=== PATIENT | male | born 1935 | race Caucasian/White ===

== ENCOUNTER → 2016-12-31 | Outpatient (CLI) | payer MEDICARE ==
[~2016-12-31] MED LIST: ASPEC81 PO; B-COTAB18 PO; CHRO1TAB5 PO; FOLI400T18 PO; GADAVIST IV PRN; GLIM4TAB PO; MULBERRY LEAF PO; MULT-506 PO; MULTCAP36 PO; OFLO0.3S OPR; OMEG10007 PO; PRED1SUS3 OPR; SITA100T3 PO; VTMD1000 PO
--- NOTE | 2016-12-31 10:40 | DIAGNOSTIC IMAGING REPORT ---
MRI OF THE BRAIN WITHOUT AND WITH IV CONTRAST CLINICAL HISTORY: ATAXIA mental status change COMPARISON STUDY: 05/10/2009 TECHNIQUE: Utilizing a 1.5 Susan magnet and dedicated coil, multiplanar, multiecho imaging of the brain was performed pre and postcontrast administration. IV administration of 8 mL of Gadavist contrast was uneventful. FINDINGS: Findings of generalized cerebellar as well as cerebral atrophy. Moderate compensatory prominence of the ventricular system. All findings are prepped minimally progressive compared to the prior study. Findings of mild chronic small vessel change. No evidence for abnormal postcontrast enhancement. The structures the internal artery canals are unremarkable. Sella and sellar regions are unremarkable. IMPRESSION: 1. Findings of moderate generalized cerebral atrophy with mild compensatory prominence of the ventricular system. 2. All findings are stable to slightly progressive compared to the prior exam. 3. No acute process. No abnormal postcontrast enhancement. Electronically signed by: Florentino Pacheco M.D. 12/31/2016 10:39 AM Dictated Date/Time: 12/31/2016 10:30 AM
[2016-12-31 11:24] LABS: ISTAT CREATININE 0.9 mg/dl (0.6-1.3); ISTAT IONIZED CALCIUM 1.23 mmol/l (1.12-1.32)
== END | disposition home or self-care (01) ==
PROVIDERS: ATTEND Psychiatry & Neurology Neurology
DX: I67.82 Cerebral ischemia (principal); R27.0 Ataxia, unspecified; G31.9 Degenerative disease of nervous system, unspecified

== ENCOUNTER → 2017-01-12 | Outpatient (CLI) | payer MEDICARE ==
[~2017-01-12] MED LIST changes: -GADAVIST IV PRN
[2017-01-12 11:12] LABS: ALT/SGPT 21 U/L (12-78); AST/SGOT 12 U/L (15-37); BLOOD UREA NITROGEN 15 mg/dl (7-18); BUN/CREATININE RATIO 13.9 (10-20); CALCIUM 8.9 mg/dl (8.5-10.1); CARBON DIOXIDE 29 mmol/L (21-32); CHLORIDE 99 mmol/L (98-107); GLUCOSE 149 mg/dl (70-99); POTASSIUM 4.2 mmol/L (3.5-5.1); SODIUM 134 mmol/L (136-145)
[2017-01-12 11:18] LABS: ESTIMATED AVERAGE GLUCOSE 194 mg/dl; HA1C FLAG Normal (Normal)
[2017-01-12 11:23] LABS: ALB/GLOB RATIO 0.9 (0.9-2); ALKALINE PHOSPHATASE 72 U/L (45-117); CHOLESTEROL 158 mg/dl (0-200); CHOLESTEROL/HDL RATIO 2.6; HDL CHOLESTEROL 60 mg/dl; LDL CHOLESTEROL CALCULATED 83 mg/dl; TRIGLYCERIDES 74 mg/dl (0-150); VERY LOW DENSITY LIPOPROT CALC 15 mg/dl
== END | disposition home or self-care (01) ==
LOC: C.LABBC 07:41
PROVIDERS: ATTEND Family Medicine
DX: E11.8 Type 2 diabetes mellitus with unspecified complications (principal)

== ENCOUNTER → 2017-03-03 | Outpatient (CLI) | payer MEDICARE ==
[2017-03-03 13:19] LABS: BASO % 0.6 %; BASO ABS # 0.04 K/uL (0-0.2); COMPLETE YES; EOS % 1.4 %; HEMATOCRIT 39.7 % (42-52); IG% 0.1 %; LYMPH % 18.8 %; LYMPH ABS # 1.34 K/uL (1.2-3.4); MEAN CELL VOLUME 93.2 fL (80-100); MEAN CORPUSCULAR HEMOGLOBIN 32.6 pg (25-34); MEAN PLATELET VOLUME 10.1 fL (7.4-10.4); MONO % 8.7 %; NEUT % 70.4 %; PLATELET COUNT 233 K/uL (130-400); RED BLOOD COUNT 4.26 M/uL (4.7-6.1); WHITE BLOOD COUNT 7.13 K/uL (4.8-10.8)
[2017-03-03 17:21] LABS: ALB/GLOB RATIO 0.9 (0.9-2); AST/SGOT 14 U/L (15-37); BLOOD UREA NITROGEN 13 mg/dl (7-18); BUN/CREATININE RATIO 13.9 (10-20); CALCIUM 8.8 mg/dl (8.5-10.1); CARBON DIOXIDE 28 mmol/L (21-32); CHLORIDE 97 mmol/L (98-107); CREATININE 0.95 mg/dl (0.60-1.40); GLUCOSE 177 mg/dl (70-99); POTASSIUM 4.2 mmol/L (3.5-5.1); SODIUM 131 mmol/L (136-145)
[2017-03-03 17:37] LABS: ALKALINE PHOSPHATASE 80 U/L (45-117); ALT/SGPT 19 U/L (12-78); FERRITIN 39.8 ng/ml (8.0-388.0); MAGNESIUM 2.5 mg/dl (1.8-2.4)
--- NOTE | 2017-03-10 10:44 | CODING QUERY MEDICAL NECESSITY ---
CQSUPPORTING DIAGNOSIS NEEDED A supporting diagnosis is required for the test/procedure performed on this patient in order for us to be reimbursed by the patient's insurance. Please provide a supporting diagnosis for the following test/procedure listed below next to the test name along with your signature. *If there is no additional diagnosis for this patient that would support the following test/procedure please document that below next to the test/procedure. Test(s)/Procedure(s) that require a supporting diagnosis: DOS 03/03/17 VITAMIN B12 Provider Signature: Date: Thank you Annabella Dong Hello! [employer] Information Management Once completed, please kindly fax back to [phone] For questions please call [phone]
== END | disposition home or self-care (01) ==
LOC: C.LABBC 11:39
PROVIDERS: ATTEND Nurse Practitioner Family
DX: R53.83 Other fatigue (principal)

== ENCOUNTER → 2017-03-10 | Outpatient (CLI) | payer MEDICARE ==
[2017-03-10 17:29] LABS: BLOOD UREA NITROGEN 14 mg/dl (7-18); BUN/CREATININE RATIO 13.1 (10-20); CALCIUM 8.6 mg/dl (8.5-10.1); CARBON DIOXIDE 30 mmol/L (21-32); CHLORIDE 97 mmol/L (98-107); GLUCOSE 230 mg/dl (70-99); MAGNESIUM 2.3 mg/dl (1.8-2.4); SODIUM 133 mmol/L (136-145)
== END | disposition home or self-care (01) ==
LOC: C.LABBC 12:51
PROVIDERS: ATTEND Nurse Practitioner Family
DX: E83.41 Hypermagnesemia (principal); E87.1 Hypo-osmolality and hyponatremia

== ENCOUNTER 2017-11-07 14:41 | Inpatient (IN) | payer MEDICARE, OTHER ==
[~2017-11-07] VITALS: Ht 177.8 cm; Wt 73.2 kg
[2017-11-07] MEDS ORDERED: SODIUM CHLORIDE 0.9% 1000ML 1,000 ML IV STA (15:05)
[2017-11-07] MEDS ORDERED: IBUP-1050 PO (15:17)
[2017-11-07] MEDS ORDERED: MOML PO (15:17)
[2017-11-07] MEDS ORDERED: PSYL48.59 PO (15:17)
[2017-11-07] MEDS ORDERED: NVLGI/PEN (15:17)
[2017-11-07] MEDS ORDERED: ASPI1TAB83 PO (15:17)
[2017-11-07] MEDS ORDERED: CHOL1000 PO (15:17)
[2017-11-07] MEDS ORDERED: PRAV20TA PO (15:17)
[2017-11-07] MEDS ORDERED: CHRO500T5 PO (15:17)
[2017-11-07] MEDS ORDERED: CALC500C3 PO (15:17)
[2017-11-07] MEDS ORDERED: INSDGIPEN SC (15:17)
[2017-11-07 15:31] LABS: BASO % 0.5 %; BASO ABS # 0.03 K/uL (0-0.2); EOS % 2.1 %; EOS ABS # 0.13 K/uL (0-0.5); HEMATOCRIT 36.8 % (42-52); HEMOGLOBIN 13.1 g/dL (14.0-18.0); IG# 0.01 K/uL (0.00-0.02); LYMPH % 12.3 %; LYMPH ABS # 0.78 K/uL (1.2-3.4); MEAN CELL VOLUME 93.2 fL (80-100); MEAN CORPUSCULAR HEMOGLOBIN 33.2 pg (25-34); MEAN CORPUSCULAR HGB CONC 35.6 g/dl (32-36); MEAN PLATELET VOLUME 10.1 fL (7.4-10.4); MONO % 7.9 %; NEUT ABS # 4.88 K/uL (1.4-6.5); PLATELET COUNT 174 K/uL (130-400); RED CELL DISTRIBUTION WIDTH CV 13.9 % (11.5-14.5); WHITE BLOOD COUNT 6.33 K/uL (4.8-10.8)
[2017-11-07 15:40] LABS: PTT PATIENT 28.2 SECONDS (21.0-31.0)
[2017-11-07 15:48] LABS: ALBUMIN 3.4 gm/dl (3.4-5.0); BLOOD UREA NITROGEN 19 mg/dl (7-18); CALCIUM 9.2 mg/dl (8.5-10.1); CARBON DIOXIDE 27 mmol/L (21-32); GLUCOSE 196 mg/dl (70-99); POTASSIUM 4.4 mmol/L (3.5-5.1); SODIUM 132 mmol/L (136-145)
--- NOTE | 2017-11-07 15:59 | EMERGENCY ROOM VISIT NOTE ---
History Report prepared by Imelda: Girish Caballero Under the Supervision of: Dr. Raghu Walsh M.D. First contact with patient: 14:46 Stated Complaint: FALL History of Present Illness The patient is a 82 year old male who presents to the Emergency Room with complaints of worsening generalized weakness that began several days ago. He has a past medical history of Parkinson's disease, diverticulosis, chronic constipation, and diabetes. This HPI is provided by the patient and his family. Four days ago, the patient experienced a fall with his walker. He landed on his back and has been experiencing lower back pain secondary to this. Since then, he has been able to walk but his notes that he has been getting progressively weaker. She also believes that his Parkinson's is worsening. Pt denies LOC, headache, visual changes, neck pain, chest pain, breathing difficulties, nausea, vomiting, abdominal pain, extremity pain, numbness, weakness, open wounds, active bleeding, or other complaints. The patient's family notes that last night, his had to lower him to ground because he was too weak to stand. Source of History: patient, family Onset: several days ago Position: other (Global) Symptom Intensity: moderate Quality: other (Generalized weakness) Timing: worsening Associated Symptoms: + back pain Review of Systems See HPI for pertinent positives and negatives. A total of ten systems were reviewed and were otherwise negative. Past Medical & Surgical Medical Problems: (1) Chronic constipation (2) Diabetes (3) Diverticulosis (4) Parkinson disease Family History Omitted secondary to the patient's age. Social History Smoking Status: Never Smoker Smokeless Tobacco Use: No Drug Use: none Occupation Status: retired Current/Historical Medications Scheduled Aspirin (Aspirin), 1 TAB PO DAILY Cholecalciferol (Vitamin D3), 1 TAB PO DAILY Chromium Picolinate (Chromium Picolinate), 500 MG PO DAILY Insulin Aspart (Novolog Flexpen), AC Insulin Glargine (Lantus Solostar), 20 UNITS SC QAM Magnesium Hydroxide (Milk Of Magnesia), 30 ML PO DAILY Pravastatin (Pravachol ), 20 MG PO DAILY Scheduled PRN Calcium Carbonate (Tums), 500 MG PO UD PRN for Indigestion Ibuprofen (Advil), 600 MG PO UD PRN for Pain Psyllium (Metamucil), 1 TBS PO DAILY PRN for Constipation Allergies Coded Allergies: No Known Allergies (Verified , NONE, 05/09/15) Physical Exam Vital Signs Date Time Temp Pulse Resp B/P (MAP) Pulse Ox O2 Delivery O2 Flow Rate FiO2 11/07/17 16:54 70 18 165/94 95 Room Air 11/07/17 15:24 69 11/07/17 14:45 96 Room Air 11/07/17 14:45 36.5 67 20 183/105 96 Room Air Physical Exam GENERAL: Awake, alert, well-appearing, in no distress HENT: Normocephalic, atraumatic. Oropharynx unremarkable. EYES: Normal conjunctiva. Sclera non-icteric. NECK: Supple. No nuchal rigidity. FROM. No JVD. RESPIRATORY: Clear to auscultation. CARDIAC: Regular rate, normal rhythm. Extremities warm and well perfused. Pulses equal. ABDOMEN: Soft, non-distended. No tenderness to palpation. No rebound or guarding. No masses. RECTAL: Deferred. MUSCULOSKELETAL: Chest examination reveals no tenderness. The back is symmetrical on inspection without obvious abnormality. There is no CVA tenderness to palpation. No joint edema. LOWER EXTREMITIES: Calves are equal size bilaterally and non-tender. No edema. No discoloration. NEURO: Normal sensorium. No sensory or motor deficits noted. SKIN: No rash or jaundice noted. Medical Decision & Procedures ER Provider Diagnostic Interpretation: Radiology results as stated below per my review and radiologist interpretation: LUMBAR SPINE CT CT DOSE: 622.43 mGy.cm HISTORY: fall, high lumbar pain, please include t-11 and t-12 TECHNIQUE: Multiaxial CT images of the lumbar spine were performed and reformatted in the sagittal and coronal plane without the use of contrast. A dose lowering technique was utilized adhering to the principles of ALARA. COMPARISON: Lumbar spine 02/02/2014. FINDINGS: Mild levoscoliosis, unchanged. There is an acute superior endplate compression fracture at T12. This demonstrates less than 10% loss of height centrally. No associated retropulsion. No additional fractures identified within the lumbar spine. There is 4 mm of anterolisthesis of L3 on L4. Moderate facet degenerative changes within the mid to lower lumbar spine. Mild disc space narrowing at L2-L3, L3-L4 and L4-5, and L5-S1. Moderate to space narrowing at L1-L2. Old, healed right posterior 12th rib fracture. Moderate to severe central canal narrowing at L3-L4 due to the disc bulge and ligamentum and facet hypertrophy. There is a punctate stone within the right kidney. An ectatic abdominal aorta measuring up to 2.8 cm in diameter. Mild paraspinal edema at the T12 level due to the fracture. IMPRESSION: 1. An acute mild superior endplate compression fracture at T12. No associated retropulsion. 2. Otherwise, no acute fractures identified within the lumbar spine. 3. Levoscoliosis. 4. Degenerative changes as described above most pronounced at the L3-L4 level. Electronically signed by: Bob Barber M.D. 11/07/2017 4:19 PM Dictated Date/Time: 11/07/2017 4:13 PM RIGHT HIP 2 VIEWS HISTORY: fall, right hip pain(h/o hip pain) COMPARISON: None. FINDINGS: There is no fracture or dislocation. Soft tissues are unremarkable. No radiopaque foreign bodies. Mild osteoarthritis within the right hip. The visualized pelvic bones are intact. IMPRESSION: No fracture or dislocation within the right hip. Electronically signed by: Bob Barber M.D. 11/07/2017 4:27 PM Dictated Date/Time: 11/07/2017 4:26 PM CHEST ONE VIEW PORTABLE HISTORY: fall, back pain COMPARISON: Chest 11/07/2017. FINDINGS: Old, healed right lower rib fractures. No focal lung consolidations to suggest pneumonia. The heart is normal in size. No pleural effusions. No pneumothorax. Retrocardiac density consistent with a moderate hiatus hernia. A few small linear densities the left lung base likely represent subsegmental atelectasis. IMPRESSION: 1. No acute process within the chest. 2. Moderate hiatus hernia. Electronically signed by: Bob Barber M.D. 11/07/2017 4:29 PM Dictated Date/Time: 11/07/2017 4:28 PM Laboratory Results 11/07/17 15:20 Red Blood Count 3.95, Mean Corpuscular Volume 93.2, Mean Corpuscular Hemoglobin 33.2, Mean Corpuscular Hemoglobin Concent 35.6, Mean Platelet Volume 10.1, Neutrophils (%) (Auto) 77.0, Lymphocytes (%) (Auto) 12.3, Monocytes (%) (Auto) 7.9, Eosinophils (%) (Auto) 2.1, Basophils (%) (Auto) 0.5, Neutrophils # (Auto) 4.88, Lymphocytes # (Auto) 0.78, Monocytes # (Auto) 0.50, Eosinophils # (Auto) 0.13, Basophils # (Auto) 0.03 11/07/17 15:20 Test 11/07/17 15:20 11/07/17 17:13 White Blood Count 6.33 K/uL (4.8-10.8) Red Blood Count 3.95 M/uL (4.7-6.1) Hemoglobin 13.1 g/dL (14.0-18.0) Hematocrit 36.8 % (42-52) Mean Corpuscular Volume 93.2 fL (80-100) Mean Corpuscular Hemoglobin 33.2 pg (25-34) Mean Corpuscular Hemoglobin Concent 35.6 g/dl (32-36) Platelet Count 174 K/uL (130-400) Mean Platelet Volume 10.1 fL (7.4-10.4) Neutrophils (%) (Auto) 77.0 % Lymphocytes (%) (Auto) 12.3 % Monocytes (%) (Auto) 7.9 % Eosinophils (%) (Auto) 2.1 % Basophils (%) (Auto) 0.5 % Neutrophils # (Auto) 4.88 K/uL (1.4-6.5) Lymphocytes # (Auto) 0.78 K/uL (1.2-3.4) Monocytes # (Auto) 0.50 K/uL (0.11-0.59) Eosinophils # (Auto) 0.13 K/uL (0-0.5) Basophils # (Auto) 0.03 K/uL (0-0.2) RDW Standard Deviation 48.0 fL (36.4-46.3) RDW Coefficient of Variation 13.9 % (11.5-14.5) Immature Granulocyte % (Auto) 0.2 % Immature Granulocyte # (Auto) 0.01 K/uL (0.00-0.02) Prothrombin Time 11.0 SECONDS (9.0-12.0) Prothromb Time International Ratio 1.0 (0.9-1.1) Activated Partial Thromboplast Time 28.2 SECONDS (21.0-31.0) Partial Thromboplastin Ratio 1.1 Anion Gap 6.0 mmol/L (3-11) Est Creatinine Clear Calc Drug Dose 65.9 ml/min Estimated GFR () 91.3 Estimated GFR (Non- 78.8 BUN/Creatinine Ratio 20.7 (10-20) Calcium Level 9.2 mg/dl (8.5-10.1) Magnesium Level 2.2 mg/dl (1.8-2.4) Total Bilirubin 0.6 mg/dl (0.2-1) Direct Bilirubin 0.1 mg/dl (0-0.2) Aspartate Amino Transf (AST/SGOT) 16 U/L (15-37) Alanine Aminotransferase (ALT/SGPT) 15 U/L (12-78) Alkaline Phosphatase 78 U/L (45-117) Troponin I < 0.015 ng/ml (0-0.045) Total Protein 7.9 gm/dl (6.4-8.2) Albumin 3.4 gm/dl (3.4-5.0) Lipase 59 U/L (73-393) Thyroid Stimulating Hormone (TSH) 1.870 uIu/ml (0.300-4.500) Urine Color YELLOW Urine Appearance CLEAR (CLEAR) Urine pH 6.5 (4.5-7.5) Urine Specific [place] 1.020 (1.000-1.030) Urine Protein NEG (NEG) Urine Glucose (UA) 1+ (NEG) Urine Ketones 1+ (NEG) Urine Occult Blood TRACE (NEG) Urine Nitrite NEG (NEG) Urine Bilirubin NEG (NEG) Urine Urobilinogen NEG (NEG) Urine Leukocyte Esterase NEG (NEG) Urine WBC (Auto) 1-5 /hpf (0-5) Urine RBC (Auto) 5-10 /hpf (0-4) Urine Hyaline Casts (Auto) 1-5 /lpf (0-5) Urine Epithelial Cells (Auto) 5-10 /lpf (0-5) Urine Bacteria (Auto) NEG (NEG) Laboratory results reviewed by me Medications Administered Medications (Trade) Dose Ordered Sig/Dannielle Route Start Time Stop Time Status Last Admin Dose Admin Sodium Chloride 1,000 ml @ 125 mls/hr Q8H STAT IV 11/07/17 15:05 11/07/17 23:04 11/07/17 15:05 125 MLS/HR Tramadol HCl (Ultram Tab) 50 mg NOW STAT PO 11/07/17 16:44 11/07/17 16:45 DC 11/07/17 17:37 50 MG ECG Indication: weakness Rate (beats per minute): 69 Rhythm: normal sinus Findings: no acute ischemic change, left axis deviation Change: ECG interpreted by me ED Course 1446: The patient was evaluated in room A10. A complete history and physical exam was performed. 1505: Ordered Sodium Chloride 1000 ml @ 125 mls/hr IV 1644: Ordered Ultram Tab 50 mg PO 1645: Upon reexamination, the patient was resting. I discussed the test results and treatment plan with him and his family. I discussed the patient's case with Dr. Gurrola of [facility]. The patient will be evaluated for further management. Medical Decision Prior records/ancillary studies reviewed and summarized above. Nursing notes reviewed and agree them. Additional history obtained from family The patient's history was concerning for weakness. Differential diagnosis: Etiologies such as metabolic, infection, hypo/hyperglycemia, electrolyte abnormalities, cardiac sources, intracerebral event, toxicologic, neurologic, as well as others were entertained. Physical examination: As above. ER treatment provided: IV Lock IV hydration with normal saline On reassessment the patient felt better. Tramadol Diagnostics interpretation by me: ECG: Normal as above. The labs revealed an unremarkable CBC and chemistry panel. Urinalysis unremarkable. Imaging studies: X-rays and CAT scan as above. Consultation: A consultation was placed with the hospitalist. The case was discussed and diagnostics were reviewed. The patient was evaluated in the ER for further treatment. Medication Reconcilliation Current Medication List: was personally reviewed by me Blood Pressure Screening Patient's blood pressure: Elevated blood pressure Referred to the hospitalist Consults Time Called: 1640 Consulting Physician: Dr. Gurrola - [facility] Returned Call: 1645 Discussed the patient's case. The patient will be evaluated for further treatment and disposition. Impression Primary Impression: Generalized weakness Additional Impressions: T12 compression fracture Fall Scribe Attestation The scribe's documentation has been prepared under my direction and personally reviewed by me in its entirety. I confirm that the note above accurately reflects all work, treatment, procedures, and medical decision making performed by me. Departure Information Dispostion Being Evaluated By Hospitalist Referrals Cortney Denise DO (PCP) Problem Qualifiers
--- NOTE | 2017-11-07 16:20 | DIAGNOSTIC IMAGING REPORT ---
LUMBAR SPINE CT CT DOSE: 622.43 mGy.cm HISTORY: fall, high lumbar pain, please include t-11 and t-12 TECHNIQUE: Multiaxial CT images of the lumbar spine were performed and reformatted in the sagittal and coronal plane without the use of contrast. A dose lowering technique was utilized adhering to the principles of ALARA. COMPARISON: Lumbar spine 02/02/2014. FINDINGS: Mild levoscoliosis, unchanged. There is an acute superior endplate compression fracture at T12. This demonstrates less than 10% loss of height centrally. No associated retropulsion. No additional fractures identified within the lumbar spine. There is 4 mm of anterolisthesis of L3 on L4. Moderate facet degenerative changes within the mid to lower lumbar spine. Mild disc space narrowing at L2-L3, L3-L4 and L4-5, and L5-S1. Moderate to space narrowing at L1-L2. Old, healed right posterior 12th rib fracture. Moderate to severe central canal narrowing at L3-L4 due to the disc bulge and ligamentum and facet hypertrophy. There is a punctate stone within the right kidney. An ectatic abdominal aorta measuring up to 2.8 cm in diameter. Mild paraspinal edema at the T12 level due to the fracture. IMPRESSION: 1. An acute mild superior endplate compression fracture at T12. No associated retropulsion. 2. Otherwise, no acute fractures identified within the lumbar spine. 3. Levoscoliosis. 4. Degenerative changes as described above most pronounced at the L3-L4 level. Electronically signed by: Bob Barber M.D. 11/07/2017 4:19 PM Dictated Date/Time: 11/07/2017 4:13 PM
--- NOTE | 2017-11-07 16:29 | DIAGNOSTIC IMAGING REPORT ---
RIGHT HIP 2 VIEWS HISTORY: fall, right hip pain(h/o hip pain) COMPARISON: None. FINDINGS: There is no fracture or dislocation. Soft tissues are unremarkable. No radiopaque foreign bodies. Mild osteoarthritis within the right hip. The visualized pelvic bones are intact. IMPRESSION: No fracture or dislocation within the right hip. Electronically signed by: Bob Barber M.D. 11/07/2017 4:27 PM Dictated Date/Time: 11/07/2017 4:26 PM
--- NOTE | 2017-11-07 16:30 | DIAGNOSTIC IMAGING REPORT ---
CHEST ONE VIEW PORTABLE HISTORY: fall, back pain COMPARISON: Chest 11/07/2017. FINDINGS: Old, healed right lower rib fractures. No focal lung consolidations to suggest pneumonia. The heart is normal in size. No pleural effusions. No pneumothorax. Retrocardiac density consistent with a moderate hiatus hernia. A few small linear densities the left lung base likely represent subsegmental atelectasis. IMPRESSION: 1. No acute process within the chest. 2. Moderate hiatus hernia. Electronically signed by: Bob Barber M.D. 11/07/2017 4:29 PM Dictated Date/Time: 11/07/2017 4:28 PM
[2017-11-07] MEDS ORDERED: TRAMADOL HCL 50 MG TAB PO STA (16:44)
[2017-11-07 16:54] VITALS: O2SAT 95
[2017-11-07] MEDS ORDERED: GLUCAGON FOR INJ 1 MG VIAL SQ PRN (17:15)
[2017-11-07] MEDS ORDERED: ONDANSETRON INJ 2 MG/ML 2 ML VIAL IV PRN (17:15)
[2017-11-07] MEDS ORDERED: ACETAMINOPHEN 325 MG TAB PO PRN (17:15)
[2017-11-07] MEDS ORDERED: GLUCOSE 10 TABS/TUBE PO PRN (17:15)
[2017-11-07] MEDS ORDERED: CALCIUM CARBONATE 500 MG CHEWABLE PO PRN (17:15)
[2017-11-07] MEDS ORDERED: GLUCOSE 40% GEL 15 GM TUBE PO PRN (17:15)
[2017-11-07] MEDS ORDERED: MAGNESIUM HYDROXIDE SUSP 30 ML UDC PO PRN (17:15)
[2017-11-07] MEDS ORDERED: DEXTROSE 50% 50 ML SYR IV PRN (17:15)
[2017-11-07] MEDS ORDERED: KETOROLAC TROMETHAMINE 15 MG/ML VIAL IV. PRN (17:15)
[2017-11-07] MEDS ORDERED: PSYLLIUM 58.6% PWD PACK S\\F PO PRN (17:15)
[2017-11-07] MEDS ORDERED: IBUPROFEN 600 MG TAB PO PRN (17:15)
[2017-11-07 17:18] LABS: ALT/SGPT 15 U/L (12-78); AST/SGOT 16 U/L (15-37); CREATININE 0.91 mg/dl (0.60-1.40); LIPASE 59 U/L (73-393)
--- NOTE | 2017-11-07 17:25 | History and Physical ---
History & Physical Date & Time of Service: Nov 07, 2017 at 17:14 Chief Complaint: FALL Primary Care Physician: Dre Ramirez III, CRNP History of Present Illness Source: patient, family 82 y/o M who was brought to the ED for back pain s/p fall. Pt fell on Thursday and has had back pain since that time that is not improving. He states he is fine at rest, but that it increases with any movement. He is supposed to use a walker, but was not at the time of the fall. He is not certain if he tripped but does not believe that he passed out. He is legally blind with low vision so it is difficult for him to determine. He has fallen 2 other times this month for the same reason. He notes that he is always dizzy--room spinning form and has been for about 13 years. This has been looked at many times with no etiology found. Pt has Parkinson's and has been having worsening weakness and ability to ambulate. Family is interested in rehab placement as is struggling to take care of him at this current level of functioning. Pt has chronic constipation. He takes milk of Mg daily to have a bowel movement and has for some time now. Pt denies fever, SOB, chest pain, abd pain, n/v, LE pain or swelling. Past Medical/Surgical History Medical Problems: (1) Chronic constipation Status: Chronic (2) Diabetes Status: Chronic (3) Diverticulosis Status: Chronic (4) Parkinson disease Status: Chronic Hyperlipidemia Old strokes noted on prior imaging Social History Smoking Status: Never Smoker Smokeless Tobacco Use: No Alcohol Use: none Drug Use: none Housing status: lives with family Occupational Status: retired Immunizations History of Influenza Vaccine: No History of Tetanus Vaccine?: No History of Pneumococcal: No History of Hepatitis B Vaccine: No Multi-Drug Resistant Organisms History of MDRO: No Allergies Coded Allergies: No Known Allergies (Verified , NONE, 05/09/15) Home Medications Scheduled Aspirin (Aspirin), 1 TAB PO DAILY Cholecalciferol (Vitamin D3), 1 TAB PO DAILY Chromium Picolinate (Chromium Picolinate), 500 MG PO DAILY Insulin Aspart (Novolog Flexpen), AC Insulin Glargine (Lantus Solostar), 20 UNITS SC QAM Magnesium Hydroxide (Milk Of Magnesia), 30 ML PO DAILY Pravastatin (Pravachol ), 20 MG PO DAILY Scheduled PRN Calcium Carbonate (Tums), 500 MG PO UD PRN for Indigestion Ibuprofen (Advil), 600 MG PO UD PRN for Pain Psyllium (Metamucil), 1 TBS PO DAILY PRN for Constipation Review of Systems Pertinent positives and negatives reviewed in HPI--all others negative Physical Exam Vital Signs Date Time Temp Pulse Resp B/P (MAP) Pulse Ox O2 Delivery O2 Flow Rate FiO2 11/07/17 16:54 70 18 165/94 95 Room Air 11/07/17 15:24 69 11/07/17 14:45 96 Room Air 11/07/17 14:45 36.5 67 20 183/105 96 Room Air General Appearance: WD/WN, no apparent distress Head: normocephalic, atraumatic Eyes: normal inspection, sclerae normal Respiratory/Chest: normal breath sounds, no respiratory distress Cardiovascular: regular rate, rhythm, no edema Abdomen/GI: non tender, soft Extremities/Musculoskelatal: no calf tenderness, no pedal edema Neurologic/Psych: alert, normal mood/affect, oriented x 3 Skin: normal color, warm/dry Diagnostics Laboratory Results Results Past 24 Hours Test 11/07/17 15:20 Range/Units White Blood Count 6.33 4.8-10.8 K/uL Red Blood Count 3.95 4.7-6.1 M/uL Hemoglobin 13.1 14.0-18.0 g/dL Hematocrit 36.8 42-52 % Mean Corpuscular Volume 93.2 80-100 fL Mean Corpuscular Hemoglobin 33.2 25-34 pg Mean Corpuscular Hemoglobin Concent 35.6 32-36 g/dl Platelet Count 174 130-400 K/uL Mean Platelet Volume 10.1 7.4-10.4 fL Neutrophils (%) (Auto) 77.0 % Lymphocytes (%) (Auto) 12.3 % Monocytes (%) (Auto) 7.9 % Eosinophils (%) (Auto) 2.1 % Basophils (%) (Auto) 0.5 % Neutrophils # (Auto) 4.88 1.4-6.5 K/uL Lymphocytes # (Auto) 0.78 1.2-3.4 K/uL Monocytes # (Auto) 0.50 0.11-0.59 K/uL Eosinophils # (Auto) 0.13 0-0.5 K/uL Basophils # (Auto) 0.03 0-0.2 K/uL RDW Standard Deviation 48.0 36.4-46.3 fL RDW Coefficient of Variation 13.9 11.5-14.5 % Immature Granulocyte % (Auto) 0.2 % Immature Granulocyte # (Auto) 0.01 0.00-0.02 K/uL Prothrombin Time 11.0 9.0-12.0 SECONDS Prothromb Time International Ratio 1.0 0.9-1.1 Activated Partial Thromboplast Time 28.2 21.0-31.0 SECONDS Partial Thromboplastin Ratio 1.1 Sodium Level 132 136-145 mmol/L Potassium Level 4.4 3.5-5.1 mmol/L Chloride Level 98 98-107 mmol/L Carbon Dioxide Level 27 21-32 mmol/L Anion Gap 6.0 3-11 mmol/L Blood Urea Nitrogen 19 7-18 mg/dl Random Glucose 196 70-99 mg/dl Calcium Level 9.2 8.5-10.1 mg/dl Magnesium Level 2.2 1.8-2.4 mg/dl Albumin 3.4 3.4-5.0 gm/dl Diagnostic Radiology CXR with moderate hiatal hernia Hip XR neg for acute Lumbar CT: T12 compression fx and scoliosis Impression Assessment and Plan 82 y/o M who was admitted on 11/07 for recent falls and worsening weakness Back pain s/p fall: likely related to T12 compression fx as noted by CT L-spine Start calcitonin spray Pt requesting no narcotics, will use toradol instead Orthotics c/s for bracing Worsening weakness: likely related to Parkinson's PT/OT pending Family is requesting rehab placement Chronic constipation: advised multi-strain probiotic such as J[place] EPS This may be a barakat factor in his dizziness, which will help with overall quality of life and fall reduction MOM as needed, however hopefully the probiotic will be able to eventually replace MOM DM: Lantus + SSI PRN A1c pending CAD prevention: continue aspirin 81mg Hyperlipidemia: continue home meds Other: Full code Heparin for DVT proph DM diet Level of Care Med/Surg Resuscitation Status FULL RESUSCITATION VTE Prophylaxis VTE Risk Assessment Done? Y/N: Yes Risk Level: Low Additional Copies To Dre Ramirez III, CRNP
[2017-11-07 17:29] LABS: ALKALINE PHOSPHATASE 78 U/L (45-117); TOTAL PROTEIN 7.9 gm/dl (6.4-8.2)
[2017-11-07 18:00] VITALS: BP 178/123; PULSE 66; TEMP 36.8; Ht 177.8 cm; Wt 73.2 kg
[2017-11-07 18:13] VITALS: BP 178/123; PULSE 66; TEMP 36.8; O2SAT 99
[2017-11-07 19:34] VITALS: BP 163/90
[2017-11-07] MEDS ORDERED: PNEUMOCOCCAL POLYSACCHARIDES 25 MCG/0.5 ML VIAL/SYR IM. ONE (20:45)
[2017-11-07] MEDS ORDERED: PNEUMOCOCCAL ADMINISTRATION CHARGE ONE (20:45)
[2017-11-07] MEDS: INSULIN ASPART 100 UNITS/ML 3 ML PEN SC SCH (21:34)
[2017-11-07] MEDS: HEPARIN SOD 5000 UNIT/0.5 ML CARP SQ SCH (21:35)
[2017-11-07 23:40] VITALS: BP 150/84; PULSE 75; TEMP 36.7; O2SAT 95
[2017-11-08] MEDS: HEPARIN SOD 5000 UNIT/0.5 ML CARP SQ SCH ×3 (05:27→21:03)
[2017-11-08 06:59] VITALS: BP 169/85; TEMP 36.7; O2SAT 99
[2017-11-08] MEDS: MAGNESIUM HYDROXIDE SUSP 30 ML UDC PO SCH (08:33)
[2017-11-08] MEDS: PRAVASTATIN SOD 20 MG TAB PO SCH (08:33)
[2017-11-08] MEDS: CALCITONIN SALMON NA 200 IU/AC 3.7 ML BTL SCH (08:34)
[2017-11-08] MEDS: ASPIRIN 81 MG ECTAB PO SCH (08:34)
[2017-11-08] MEDS: CHOLECALCIFEROL 1000 INTER.UNIT TAB PO SCH (08:34)
[2017-11-08] MEDS: INSULIN ASPART 100 UNITS/ML 3 ML PEN SC SCH ×4 (08:35→21:00)
[2017-11-08] MEDS: INSULIN GLARGINE SOLOSTAR 100 UNITS/ML 3 ML PEN SC SCH (08:36)
[2017-11-08] MEDS ORDERED: CHROMIUM PICOLINATE PO SCH (09:00)
[2017-11-08] MEDS ORDERED: HydrALAZINE HCL 20 MG/ML VIAL IV. PRN (12:00)
[2017-11-08 13:41] VITALS: BP 162/95; PULSE 78; O2SAT 99
[2017-11-08 15:17] VITALS: BP 145/78; PULSE 78; TEMP 36.6; O2SAT 98
--- NOTE | 2017-11-08 21:58 | Hospitalist Progress Note ---
Hospitalist Progress Note Date of Service Nov 08, 2017. Subjective Pt evaluation today including: conversation w/ patient, conversation w/ family ( and daughter on phone) Pt reports pain in lower back, but "not terrible." No CP or SOB. Would like me to speak to his about possible placement. All Other Systems: Reviewed and Negative Objective Vital Signs Date Time Temp Pulse Resp B/P (MAP) Pulse Ox O2 Delivery O2 Flow Rate FiO2 11/08/17 15:17 36.6 78 16 145/78 (100) 98 Room Air 11/08/17 15:10 Room Air 11/08/17 13:41 78 18 162/95 (117) 99 11/08/17 07:49 Room Air 11/08/17 06:59 36.7 16 169/85 (113) 99 Room Air 11/07/17 23:40 36.7 75 18 150/84 (106) 95 Room Air 11/07/17 23:00 Room Air Physical Exam General Appearance: WD/WN, no apparent distress Eyes: normal inspection, sclerae normal ENT: + pertinent finding ([place]) Neck: trachea midline Respiratory/Chest: lungs clear, normal breath sounds, no respiratory distress, no accessory muscle use Cardiovascular: regular rate, rhythm, no edema, no gallop, no murmur Abdomen: normal bowel sounds, non tender, soft, no pulsatile mass Extremities: non-tender (and no tenderness over spinous processes), no pedal edema, no calf tenderness Neurologic/Psychiatric: no motor/sensory deficits, alert, normal mood/affect Skin: normal color, warm/dry, no rash Laboratory Results Last 24 Hours Test 11/08/17 05:20 11/08/17 08:10 11/08/17 12:15 11/08/17 17:05 Bedside Glucose 132 mg/dl 162 mg/dl 91 mg/dl Test 11/08/17 20:33 Bedside Glucose 110 mg/dl Assessment and Plan Pt is an 82 y/o male with a h/o HTN, HL, DMII, constipation, macular degeneration with legal blindness, hearing loss, and polyneuropathy who was admitted for recent falls and worsening weakness, found to have acute T12 compression fracture and intractable pain. Back pain s/p fall: likely related to T12 compression fx as noted by CT L- spine. Pain is fairly well controlled. Evaluated by PT and recommending rehab placement -continue calcitonin spray Pt requesting no narcotics, will use toradol/NSAIDs Orthotics c/s for bracing-awaiting consult likely Thursday Worsening weakness:has chronic dizziness, neuropathy, legal blindness all likely contributing to falls. Has seen Neurology and ENT multiple times as outpatient-advised to have PT PT/OT pending Family is requesting rehab placement Chronic constipation: probiotic recommended This may be a barakat factor in his dizziness, which will help with overall quality of life and fall reduction MOM as needed, however hopefully the probiotic will be able to eventually replace MOM -start fiber daily, Miralax daily DM: Lantus + SSI PRN A1c pending CAD prevention: continue aspirin 81mg Hyperlipidemia: continue statin Full code Heparin for DVT proph Dispo- to SNF when bed available and insurance auth approved
[2017-11-08 23:21] VITALS: BP 163/85; PULSE 75; TEMP 36.8; O2SAT 94
[2017-11-09] MEDS: HEPARIN SOD 5000 UNIT/0.5 ML CARP SQ SCH ×2 (05:33→13:11)
[2017-11-09 07:15] VITALS: BP 160/77; PULSE 71; TEMP 36.5; O2SAT 97
[2017-11-09 07:39] LABS: HEMOGLOBIN A1C 7.6 % (4.5-5.6)
[2017-11-09] MEDS: CALCITONIN SALMON NA 200 IU/AC 3.7 ML BTL SCH (08:35)
[2017-11-09] MEDS: CHOLECALCIFEROL 1000 INTER.UNIT TAB PO SCH (08:35)
[2017-11-09] MEDS: PRAVASTATIN SOD 20 MG TAB PO SCH (08:35)
[2017-11-09] MEDS: ASPIRIN 81 MG ECTAB PO SCH (08:35)
[2017-11-09] MEDS: MAGNESIUM HYDROXIDE SUSP 30 ML UDC PO SCH (08:37)
[2017-11-09] MEDS: INSULIN ASPART 100 UNITS/ML 3 ML PEN SC SCH ×4 (08:42→17:19)
[2017-11-09] MEDS: INSULIN GLARGINE SOLOSTAR 100 UNITS/ML 3 ML PEN SC SCH (08:43)
[2017-11-09] MEDS ORDERED: POLYETHYLENE (MIRALAX) 17 GM PACK PO SCH (09:00)
[2017-11-09] MEDS ORDERED: SACCHAROMYCES BOUL (FLORASTOR) 250 MG CAP PO SCH (09:00)
[2017-11-09] MEDS ORDERED: PSYLLIUM 58.6% PWD PACK S\\F PO SCH (09:00)
[2017-11-09] MEDS ORDERED: MCLIN (12:25)
[2017-11-09] MEDS ORDERED: SACC250C3 PO (12:25)
[2017-11-09] MEDS ORDERED: ACET-1047 PO (12:25)
[2017-11-09] MEDS ORDERED: IBUP-1050 PO (12:25)
--- NOTE | 2017-11-09 12:33 | Discharge Instructions ---
Discharge Instructions Date of Service Nov 09, 2017. Admission Reason for Admission: Fall, T12 Compression Fx Discharge Discharge Diagnosis / Problem: T12 Compression Fracture Discharge Goals Goal(s): Decrease discomfort, Improve function, Increase independence Activity Recommendations Activity Level: Assistance Required Therapies: Physical Therapy, Occupational Therapy Weightbearing Status: Left weightbearing (as tolerated), Right weightbearing ( as tolerated) . Additional Information Patient informed of condition: Yes Advance Directives: Yes DNR: No Level of Care: Skilled Communicable Disease: No Prognosis: Improving Instructions / Follow-Up Instructions / Follow-Up Pt is an 82 y/o male with a h/o HTN, HL, DMII, constipation, macular degeneration with legal blindness, hearing loss, and polyneuropathy who was admitted for recent falls and worsening weakness, found to have acute T12 compression fracture and intractable pain. T12 Compression Fx S/P Fall: - Pain is well-controlled. Requesting to not use narcotics. Will prescribe Ibuprofen and Tylenol as needed - Continue Calcitonin spray daily alternating nostrils - Will supply back brace - Falls likely multifactorial between chronic dizziness, neuropathy, legal blindness.. Chronic Constipation: - Continue MOM as needed. Will continue a probiotic to hopefully help with this. - Continue Fiber and Miralax daily T2DM: A1c 7.6 - Continue current Lantus and Sliding Scale CAD Prevention: Continue ASA 81 mg daily and Statin therapy Current Hospital Diet Patient's current hospital diet: Diabetes Type 2 Diet Discharge Diet Recommended Diet: Diabetes Type 2 Diet Pending Studies Studies pending at discharge: no Laboratory Results Hemoglobin A1c Test 11/08/17 05:20 Range/Units Estimated Average Glucose 171 mg/dl Hemoglobin A1c 7.6 H 4.5-5.6 % Medical Emergencies . Who to Call and When: Medical Emergencies: If at any time you feel your situation is an emergency, please call 911 immediately. . Non-Emergent Contact Non-Emergency issues call your: Primary Care Provider Call Non-Emergent contact if: you have a fever, your pain is concerning you, you have any medication questions . . "Provider Documentation" section prepared by Basia Mattson. . Core Measure Problem Core Measures: None
[2017-11-09] MEDS ORDERED: MRLP17 PO (12:40)
[2017-11-09 14:10] VITALS: BP 160/77; PULSE 71; TEMP 36.5; O2SAT 97
[2017-11-09 15:26] VITALS: BP 174/90; PULSE 86; TEMP 34.7
[2017-11-09 16:00] VITALS: TEMP 36.5; O2SAT 96
--- NOTE | 2017-11-09 21:51 | Discharge Summary ---
Discharge Summary Date of Service Nov 09, 2017. Discharge Summary Admission Date: Nov 07, 2017 at 17:13 Discharge Date: Nov 09, 2017 Discharge Disposition: long term facility Principal Diagnosis: Suspected Mechanical Fall with T12 Compression Fx Problems/Secondary Diagnoses: 1. T2DM 2. HTN 3. HLD 4. Frequent Falls 5. Neuropathy 6. Legal Blindess 7. Chronic Constipation 8. H/O CVA Immunizations: Have You Had Influenza Vaccine: No History of Tetanus Vaccine?: No History of Pneumococcal: No History of Hepatitis B Vaccine: No Procedures: LUMBAR SPINE CT FINDINGS: Mild levoscoliosis, unchanged. There is an acute superior endplate compression fracture at T12. This demonstrates less than 10% loss of height centrally. No associated retropulsion. No additional fractures identified within the lumbar spine. There is 4 mm of anterolisthesis of L3 on L4. Moderate facet degenerative changes within the mid to lower lumbar spine. Mild disc space narrowing at L2-L3, L3-L4 and L4-5, and L5-S1. Moderate to space narrowing at L1-L2. Old, healed right posterior 12th rib fracture. Moderate to severe central canal narrowing at L3-L4 due to the disc bulge and ligamentum and facet hypertrophy. There is a punctate stone within the right kidney. An ectatic abdominal aorta measuring up to 2.8 cm in diameter. Mild paraspinal edema at the T12 level due to the fracture. IMPRESSION: 1. An acute mild superior endplate compression fracture at T12. No associated retropulsion. 2. Otherwise, no acute fractures identified within the lumbar spine. 3. Levoscoliosis. 4. Degenerative changes as described above most pronounced at the L3-L4 level. Consultations: 1. PT/OT Medication Reconciliation New Medications: Acetaminophen (Mapap) 325 Mg Tab 650 MG PO Q4H PRN for Pain or Fever for 14 Days, #112 TAB Calcitonin [place] (Calcitonin-[place]) 30 Cunningham/3.7 Ml Soln 1 SPRAY NA DAILY for 30 Days, #1 BTL once daily alternating nostils Polyethylene (Miralax) 17 Gm Pow 17 GM PO DAILY for 14 Days, #14 PKT Saccharomyces Boulardii (Florastor) 250 Mg Cap 250 MG PO DAILY for 30 Days, #30 CAP Changed Medications: Ibuprofen (Advil) 200 Mg Tab 600 MG PO TID PRN for Pain for 30 Days, #270 TAB (Changed from: UD) Continued Medications: Aspirin (Aspirin) 81 Mg Tab 1 TAB PO DAILY for 90 Days, #90 TAB 3 Refills Calcium Carbonate (Tums) 500 Mg Chew 500 MG PO UD PRN for Indigestion Cholecalciferol (Vitamin D3) 1,000 Unit Tab 1 TAB PO DAILY for 90 Days, #90 TAB 3 Refills Chromium Picolinate (Chromium Picolinate) 500 Mcg Tab 500 MG PO DAILY Insulin Aspart (Novolog Flexpen) 100 Units/Ml Inj AC SLIDING SCALE FOR BSG >150 Insulin Glargine (Lantus Solostar) 100 Unit/Ml Inj 20 UNITS SC QAM, PEN Magnesium Hydroxide (Milk Of Magnesia) 30 Ml Susp 30 ML PO DAILY, ML Pravastatin (Pravachol ) 20 Mg Tab 20 MG PO DAILY, TAB Psyllium (Metamucil) 48.57 % Pow 1 TBS PO DAILY PRN for Constipation Discharge Exam General/Constitutional: Denies fever/chills, fatigue, weakness ENT: Denies acute visual changes, nasal drainage, hearing loss, sore throat, trouble swallowing Cardiovascular: Denies chest pain, palpitations, edema Respiratory: Denies cough, sputum, SOB, wheezing, orthopnea GI: + constipation - chronic; Denies nausea, vomiting, abdominal pain, diarrhea , melena/hematochezia : Denies dysuria, frequency, hematuria Musculoskeletal: + R hip pain Neurologic: + chronic numbness/tingling; Denies dizziness/lightheadedness Hematologic/Lymphatic: Denies bleeding/clotting abnormalities Skin: Denies rash, itch, new skin changes, easy bruising General Appearance: WDWN in NAD who is A&O x 3 HEENT: Head is normocephalic/atraumatic; Mucous membranes moist; Pharynx negative for exudate/lesions Neck: Supple; Trachea midline; Neg JVD; Neg lymphadenopathy Heart: RRR with no M/G/R Lungs: CTA in all lung villalobos bilaterally; Respirations unlabored; Neg accessory muscle use Abdomen: Soft, non-tender, non-distended; Positive BS x 4 quadrants Extremities: Neg cyanosis or edema Neurological: Speech clear; Neg focal neurologic deficits Psychiatric: Appropriate mood/affect Skin: Normal Color; Warm/Dry; Neg rashes, ecchymosis, lacerations/ulcerations Hospital Course ADMISSION: 82 y/o M who was brought to the ED for back pain s/p fall. Pt fell on Thursday and has had back pain since that time that is not improving. He states he is fine at rest, but that it increases with any movement. He is supposed to use a walker, but was not at the time of the fall. He is not certain if he tripped but does not believe that he passed out. He is legally blind with low vision so it is difficult for him to determine. He has fallen 2 other times this month for the same reason. He notes that he is always dizzy-- room spinning form and has been for about 13 years. This has been looked at many times with no etiology found. Pt has Parkinson's and has been having worsening weakness and ability to ambulate. Family is interested in rehab placement as is struggling to take care of him at this current level of functioning. Pt has chronic constipation. He takes milk of Mg daily to have a bowel movement and has for some time now. Pt denies fever, SOB, chest pain, abd pain, n/v, LE pain or swelling. HOSPITAL COURSE: Mr. Butterfield was admitted after suspected mechanical fall resulting in T12 compression fracture. He has had numerous falls with multiple factors that could contribute to this including chronic dizziness, visual deficits, and neuropathy. He was supplied with a back brace from orthotics. He is WBAT. Will continue calcitonin spray daily. PT/OT recommending rehab and patient will go to [facility] for rehab. Home medications were continued as previously prescribed. Did prescribe probiotics and schedule Miralax to assist with chronic constipation. Wants to avoid narcotics and luckily this will not complicate constipation. Intermittent placement sierra Parkinson's however do not see direct diagnosis of such and has been evaluated by neurology. Total Time Spent: Greater than 30 minutes This includes examination of the patient, discharge planning, medication reconciliation, and communication with other providers. Discharge Instructions Please refer to the electronic Patient Visit Report (Discharge Instructions) for additional information. Additional Copies To Dre Ramirez III, CRNP Reviewed: Pt Seen/Exam by Me History Physician Bonding Supervisor Supervision Note: I interviewed and examined the patient. Discussed with WES Mattson and agree with findings and plan as documented in the note. Any exceptions or clarifications are listed here: Pt has no complaints except felt very unsteady with standing up today. Back pain comes and goes depending on movement. Vitals reviewed NAD, sitting in chair, confused at times RRR no mgr CTAB no wcr Abd +BS soft NT Ext no edema SKin: diffuse maculopapular rash with a few excoriations on back, erythematous Pt is an 82 y/o male with a h/o HTN, HL, DMII, constipation, macular degeneration with legal blindness, hearing loss, and polyneuropathy who was admitted for recent falls and worsening weakness, found to have acute T12 compression fracture and intractable pain. Back pain s/p fall: likely related to T12 compression fx as noted by CT L- spine. Pain is fairly well controlled. Evaluated by PT and recommending rehab placement -continue calcitonin spray Pt requesting no narcotics, will use toradol/NSAIDs Orthotics c/s for brace appreciated- TLSO brace applied Worsening weakness:has chronic dizziness, neuropathy, legal blindness all likely contributing to falls. Has seen Neurology and ENT multiple times as outpatient-advised to have PT PT/OT pending Family is requesting rehab placement Chronic constipation: probiotic recommended This may be a barakat factor in his dizziness, which will help with overall quality of life and fall reduction MOM as needed, however hopefully the probiotic will be able to eventually replace MOM -start fiber daily, Miralax daily DM: Lantus + SSI PRN A1c 7.6% and well controlled here CAD prevention: continue aspirin 81mg Hyperlipidemia: continue statin Dispo- to SNF today Documented By: Kindra Coulter
== END 2017-11-09 17:30 | DRG 552 ==
LOC: EDBD 14:41 → C.EDA 14:45 → C.3E 17:13 → EDBEDREQSVC 17:17 → ENRESERV 17:37
PROVIDERS: ADMIT Family Medicine; ATTEND Family Medicine
DX: S22.080A Wedge compression fracture of T11-T12 vertebra, initial encounter for closed fracture (principal); W19.XXXA Unspecified fall, initial encounter; R29.6 Repeated falls; G20 Parkinson's disease; R42 Dizziness and giddiness; H35.30 Unspecified macular degeneration; H54.8 Legal blindness, as defined in USA; K59.09 Other constipation; E11.42 Type 2 diabetes mellitus with diabetic polyneuropathy; I25.10 Atherosclerotic heart disease of native coronary artery without angina pectoris; E78.5 Hyperlipidemia, unspecified; H91.90 Unspecified hearing loss, unspecified ear; Z86.73 Personal history of transient ischemic attack (TIA), and cerebral infarction without residual deficits; Z79.82 Long term (current) use of aspirin; Z79.4 Long term (current) use of insulin; Z79.899 Other long term (current) drug therapy

== ENCOUNTER 2018-04-16 17:36 | Emergency (ER) | payer MEDICARE ==
[~2018-04-16 17:36] MED LIST changes: +ACET-1047 PO; -ASPEC81 PO; +ASPI1TAB83 PO; -B-COTAB18 PO; +CALC500C3 PO; +CHOL1000 PO; -CHRO1TAB5 PO; +CHRO500T5 PO; +FLM4 PO; -FOLI400T18 PO; +FRRS300 PO; -GLIM4TAB PO; +INSDGIPEN SC; +KFL500 PO; +MCLIN; +MCRK20 PO; +MOML PO; +MRLP17X PO; -MULBERRY LEAF PO; -MULT-506 PO; -MULTCAP36 PO; +NVLGI/PEN SC; -OFLO0.3S OPR; -OMEG10007 PO; +PANT1TAB4 PO; +PRAV20TA PO; -PRED1SUS3 OPR; +PSYL48.59 PO; +SACC250C3 PO; +SERT1TAB88 PO; -SITA100T3 PO; +SRQ25 PO; -VTMD1000 PO
[2018-04-16 17:39] VITALS: TEMP 36.7
--- NOTE | 2018-04-16 18:02 | EMERGENCY ROOM VISIT NOTE ---
History Report prepared by Imelda: Wilberto Olivares Under the Supervision of: Dr. Joselo Suero M.D. First contact with patient: 17:41 Chief Complaint: GI ASSESSMENT Stated Complaint: BOWEL OBSTRUTION, SIGNS NO BOWEL MOVEMENT History of Present Illness The patient is an 83 year old white male with a past medical history of anemia, chronic constipation, diverticulosis, HLD, HTN, neuropathy, DM, BPH who presents to the ED with a cc of constant constipation beginning 7 days ago. Positive LLQ pain with pressure, passing some gas, intermittent nausea. Negative a history of abdominal surgeries, vomiting, fever, chills, cough, a history of thyroid problems. Pt's daughter states the at-home nurse evaluated the patient, and he had LLQ enlargement and pain with pressure. She reports he was given an enema and produced liquid stool. The daughter notes his symptoms began when he was given iron. She states the at-home nurse told them to come to the ED to rule out a bowel obstruction. Source of History: patient Onset: 7 days ago Quality: other (constipation) Timing: constant Associated Symptoms: + abdominal pain, No fevers, No chills, No cough, No nausea, No vomiting Note: Associated symptoms: passing gas Denies: a history of abdominal surgeries, a history of thyroid problems Review of Systems See HPI for pertinent positives and negatives. A total of ten systems were reviewed and were otherwise negative. Past Medical & Surgical Medical Problems: (1) Anemia (2) Benign prostate hyperplasia (3) Chronic constipation (4) Diverticulosis (5) Frequent falls (6) Hyperlipidemia (7) Hypertension (8) Peripheral neuropathy (9) Type 2 diabetes mellitus Family History No pertinent family history Social History Smoking Status: Never Smoker Drug Use: none Housing Status: lives with significant other Occupation Status: retired Current/Historical Medications Scheduled Aspirin (Aspirin), 1 TAB PO DAILY Calcitonin [place] (Calcitonin-[place]), 1 SPRAY NA DAILY Cholecalciferol (Vitamin D3), 1 TAB PO DAILY Insulin Aspart (Novolog Flexpen), 1-4 UNITS SC AC Insulin Glargine (Lantus Solostar), 20 UNITS SC QAM Magnesium Hydroxide (Milk Of Magnesia), 30 ML PO DAILY Pravastatin (Pravachol ), 20 MG PO DAILY Quetiapine Fumarate (Quetiapine Fumarate), 12.5 MG PO HS Sertraline HCl (Sertraline HCl), 25 MG PO DAILY Tamsulosin HCl (Tamsulosin HCl), 0.8 MG PO HS Scheduled PRN Acetaminophen (Mapap), 650 MG PO Q4H PRN for Pain or Fever Calcium Carbonate (Tums), 500 MG PO UD PRN for Indigestion Allergies Coded Allergies: No Known Allergies (Verified , NONE, 04/16/18) Physical Exam Vital Signs Date Time Temp Pulse Resp B/P (MAP) Pulse Ox O2 Delivery O2 Flow Rate FiO2 04/16/18 21:50 79 20 162/89 96 04/16/18 19:41 69 23 184/90 95 Room Air 04/16/18 17:39 36.7 95 18 167/82 96 Room Air Physical Exam GENERAL: Awake, alert, well-appearing, NAD. Poor dentition. HENT: Normocephalic, atraumatic. EYES: Normal conjunctiva. Sclera non-icteric. PERRL. No anisocoria. NECK: Supple. No nuchal rigidity. FROM. RESPIRATORY: CTAB, no rhonchi, wheezing, crackles CARDIAC: RRR, no MRG ABDOMEN: Soft, ND, BS are hyperactive. Mild LLQ discomfort. MSK: No chest wall TTP, no LE edema NEURO: GCS 15, CN 2-12 intact, moves all 4s on command SKIN: No rash or jaundice noted. Medical Decision & Procedures ER Provider Diagnostic Interpretation: Radiology results as stated below per my review and radiologist interpretation: CT ABD/PELVIS IV CONTRAST ONLY CLINICAL HISTORY: Left lower quadrant abdominal pain and constipation COMPARISON STUDY: March 22, 2018 TECHNIQUE: Following the IV administration of 94 mL of Optiray-320, CT scan of the abdomen and pelvis was performed from the lung bases to the proximal femurs. Images are reviewed in the axial, sagittal, and coronal planes. IV contrast was administered without complication. A dose lowering technique was utilized adhering to the principles of ALARA. CT DOSE: 574.93 mGycm FINDINGS: Lower chest: There is pulmonary emphysema. There is azygous or scarring. There is a prominent hiatal hernia. Liver: There is mild hepatic steatosis. No focal masses are visualized. Gallbladder: Unremarkable. Spleen: Normal in size and attenuation. Pancreas: Unremarkable. Adrenal glands: Unremarkable. Kidneys: No solid renal masses are visualized. Subcentimeter renal hypodensities are felt to represent cysts. There is a nonobstructing 3 mm right renal calculus. Bowel: There are no transition zones indicate bowel obstruction. There is significant fecal retention. The rectum is distended and measures 8.9 cm in diameter. There is no acute appendicitis. There is no evidence of acute diverticulitis. Peritoneum: There is no intraperitoneal free air or abdominal ascites. Vasculature: There is ectasia of the infra renal abdominal aorta which measures 27 mm. Adenopathy: None. Pelvic viscera: There is mild prostamegaly. The prostate appears slightly deformed by the large amount stool within the rectal vault. Skeletal structures: There is a persistent moderate T12 compression fracture. IMPRESSION: 1. Suspected fecal impaction. The rectum is distended and measures 8.9 cm. There is minimal perirectal edema. 2. No evidence of free air. 3. No evidence of acute diverticulitis. No evidence of acute appendicitis. 4. Nonobstructing right renal calculus 5. Hiatal hernia Electronically signed by: Jose Frias M.D. 04/16/2018 7:47 PM Dictated Date/Time: 04/16/2018 7:41 PM Laboratory Results 04/16/18 18:10 Red Blood Count 3.50, Mean Corpuscular Volume 91.1, Mean Corpuscular Hemoglobin 29.4, Mean Corpuscular Hemoglobin Concent 32.3, Mean Platelet Volume 9.8, Neutrophils (%) (Auto) 76.7, Lymphocytes (%) (Auto) 15.5, Monocytes (%) (Auto) 6.1, Eosinophils (%) (Auto) 1.3, Basophils (%) (Auto) 0.2, Neutrophils # (Auto) 4.57, Lymphocytes # (Auto) 0.92, Monocytes # (Auto) 0.36, Eosinophils # (Auto) 0.08, Basophils # (Auto) 0.01 04/16/18 18:10 Test 04/16/18 18:10 04/16/18 18:16 04/16/18 19:25 White Blood Count 5.95 K/uL (4.8-10.8) Red Blood Count 3.50 M/uL (4.7-6.1) Hemoglobin 10.3 g/dL (14.0-18.0) Hematocrit 31.9 % (42-52) Mean Corpuscular Volume 91.1 fL (80-100) Mean Corpuscular Hemoglobin 29.4 pg (25-34) Mean Corpuscular Hemoglobin Concent 32.3 g/dl (32-36) Platelet Count 137 K/uL (130-400) Mean Platelet Volume 9.8 fL (7.4-10.4) Neutrophils (%) (Auto) 76.7 % Lymphocytes (%) (Auto) 15.5 % Monocytes (%) (Auto) 6.1 % Eosinophils (%) (Auto) 1.3 % Basophils (%) (Auto) 0.2 % Neutrophils # (Auto) 4.57 K/uL (1.4-6.5) Lymphocytes # (Auto) 0.92 K/uL (1.2-3.4) Monocytes # (Auto) 0.36 K/uL (0.11-0.59) Eosinophils # (Auto) 0.08 K/uL (0-0.5) Basophils # (Auto) 0.01 K/uL (0-0.2) RDW Standard Deviation 55.5 fL (36.4-46.3) RDW Coefficient of Variation 16.5 % (11.5-14.5) Immature Granulocyte % (Auto) 0.2 % Immature Granulocyte # (Auto) 0.01 K/uL (0.00-0.02) Estimated GFR () 86.1 Estimated GFR (Non- 74.2 BUN/Creatinine Ratio 14.3 (10-20) Calcium Level 8.8 mg/dl (8.5-10.1) Total Bilirubin 0.4 mg/dl (0.2-1) Direct Bilirubin 0.1 mg/dl (0-0.2) Aspartate Amino Transf (AST/SGOT) 13 U/L (15-37) Alanine Aminotransferase (ALT/SGPT) 12 U/L (12-78) Alkaline Phosphatase 80 U/L (45-117) Total Protein 7.4 gm/dl (6.4-8.2) Albumin 3.3 gm/dl (3.4-5.0) Lipase 37 U/L (73-393) Bedside Hemoglobin 10.5 g/dl (14.0-18.0) Bedside Hematocrit 31 % (42-52) Bedside Sodium 140 mEq/L (135-144) Bedside Potassium 3.1 mEq/L (3.3-5.0) Bedside Chloride 102 mEq/L (101-112) Bedside Total CO2 24 mEq/l (24-31) Anion Gap 17.0 mmol/L (16-25) Bedside Blood Urea Nitrogen 13 mg/dl (7-18) Bedside Creatinine 0.9 mg/dl (0.6-1.3) Bedside Glucose (other) 83 mg/dl (70-99) Bedside Ionized Calcium ([place]) 1.11 mmol/l (1.12-1.32) Urine Color YELLOW Urine Appearance TURBID (CLEAR) Urine pH 6.5 (4.5-7.5) Urine Specific [place] 1.017 (1.000-1.030) Urine Protein 1+ (NEG) Urine Glucose (UA) NEG (NEG) Urine Ketones NEG (NEG) Urine Occult Blood 1+ (NEG) Urine Nitrite NEG (NEG) Urine Bilirubin NEG (NEG) Urine Urobilinogen NEG (NEG) Urine Leukocyte Esterase LARGE (NEG) Urine WBC (Auto) >30 /hpf (0-5) Urine RBC (Auto) 5-10 /hpf (0-4) Urine Hyaline Casts (Auto) 1-5 /lpf (0-5) Urine Epithelial Cells (Auto) 0-5 /lpf (0-5) Urine Bacteria (Auto) 1+ (NEG) Laboratory results reviewed by me Medications Administered Medications (Trade) Dose Ordered Sig/Dannielle Route Start Time Stop Time Status Last Admin Dose Admin Lactulose (Chronulac Syrup) 30 gm NOW STAT PO 04/16/18 19:56 04/16/18 19:57 DC 04/16/18 20:48 30 GM Metoclopramide HCl (Reglan Inj) 10 mg NOW STAT IV. 04/16/18 19:56 04/16/18 19:57 DC 04/16/18 20:48 10 MG Senna/Docusate Sodium (Senokot S Tab) 1 tab NOW ONCE PO 04/16/18 20:00 04/16/18 20:01 DC 04/16/18 20:48 1 TAB ED Course 1742: The patient was evaluated in room B02. A complete history and physical exam was performed. 2034: I reevaluated the patient and attempted to disimpact him. 2146: I reevaluated the patient. Discussed results and discharge instructions: he verbalized understanding and agreement. The patient is ready for discharge. Medical Decision The patient is an 83 year old white male with a past medical history of anemia, chronic constipation, diverticulosis, HLD, HTN, neuropathy, DM, BPH who presents to the ED with a cc of constant constipation beginning 7 days ago. Nursing notes reviewed. Ancillary studies and prior records reviewed. Differential diagnosis: Etiologies such as appendicitis, diverticulitis, PUD, biliary pathology, UTI, pancreatitis, obstruction, mesenteric ischemia, aortic pathology, infections, inflammatory bowel disease, renal colic, as well as others were entertained. Patient was seen and evaluated the bedside. There was concern for possible bowel obstruction as the patient had a bowel movement 7 days. He did receive enemas without relief. The patient does have some mild left lower quadrant discomfort. The patient does have hyperactive bowel sounds. The patient is not obstipated. Patient did blood work completed along with a CT abdomen pelvis. Patient blood work fairly unremarkable. Patient does have some mild anemia. The patient CT of the pelvis did show likely rectal impaction the rectum at 8.9 cm. Patient did attend have a bowel movement without success. A disimpaction was performed and there was some stool that was removed. Patient was given medications including docusate senna, lactulose, Reglan, and fleets enema. Given the patient does not have an obstruction the patient was given medications the patient was deemed suitable for outpatient follow-up and treatment at this time. Patient was given strict follow-up, discharge, and return precautions. All questions were answered. Patient was deemed suitable for outpatient follow- up at this time. Patient agreed with the plan of care and was safely discharged home. Medication Reconcilliation Current Medication List: was personally reviewed by me Blood Pressure Screening Patient's blood pressure: Elevated blood pressure Blood pressure disposition: Referred to PCP Impression Primary Impression: Anemia Additional Impressions: Hypokalemia Fecal impaction of rectum Constipation Scribe Attestation The scribe's documentation has been prepared under my direction and personally reviewed by me in its entirety. I confirm that the note above accurately reflects all work, treatment, procedures, and medical decision making performed by me. Departure Information Dispostion Home / Self-Care Referrals Suad Vasquez MD (PCP) Forms HOME CARE DOCUMENTATION FORM, IMPORTANT VISIT INFORMATION Patient Instructions Diet High Fiber Dc, ED Constipation, My [facility] Additional Instructions Please return to the emergency department if you have worsening or recurrent symptoms not amenable to at-home treatment. Please call for a follow-up appointment with her primary care physician. Please take your medications as prescribed. If you have other concerns and/or complaints please feel free to also call your primary care physician's office or return the ED for further evaluation, management, and treatment. You may take 200 mg Ibuprofen every 6 hours as needed for pain/fever with food unless told by your physician not to take NSAIDs. You may take tylenol 650 mg every 6 hours as needed for pain/fever unless told by your physician to not take it or have liver problems. You may take motrin and tylenol separately or at the same time. Take your medications as prescribed. For constipation please consider hydrating liberally with clear liquids, high- fiber diet, leafy greens. Please avoid antihistamines and narcotic medications. You may also consider stool softeners like docusate and senna, laxatives like magnesium citrate or lactulose, suppositories, and/or enemas. You have been examined and treated today on an emergency basis only. This is not a substitute for, or an effort to provide, complete comprehensive medical care. It is impossible to recognize and treat all injuries or illnesses in a single emergency department visit. It is therefore important that you follow up closely with [facility], your PCP, and/or your specialist(s). Call as soon as possible for an appointment. Thank you for your time and consideration. I look forward to speaking with you again soon. Please don't hesitate to call us if you have any questions. Problem Qualifiers Primary Impression: Anemia Anemia type: unspecified type Qualified Codes: D64.9 - Anemia, unspecified
[2018-04-16 18:19] LABS: BASO % 0.2 %; BASO ABS # 0.01 K/uL (0-0.2); EOS % 1.3 %; EOS ABS # 0.08 K/uL (0-0.5); HEMATOCRIT 31.9 % (42-52); HEMOGLOBIN 10.3 g/dL (14.0-18.0); IG# 0.01 K/uL (0.00-0.02); LYMPH % 15.5 %; LYMPH ABS # 0.92 K/uL (1.2-3.4); MEAN CELL VOLUME 91.1 fL (80-100); MEAN CORPUSCULAR HEMOGLOBIN 29.4 pg (25-34); MEAN CORPUSCULAR HGB CONC 32.3 g/dl (32-36); MEAN PLATELET VOLUME 9.8 fL (7.4-10.4); MONO % 6.1 %; MONO ABS # 0.36 K/uL (0.11-0.59); NEUT % 76.7 %; NEUT ABS # 4.57 K/uL (1.4-6.5); PLATELET COUNT 137 K/uL (130-400); RED CELL DISTRIBUTION WIDTH CV 16.5 % (11.5-14.5); RED CELL DISTRIBUTION WIDTH SD 55.5 fL (36.4-46.3); WHITE BLOOD COUNT 5.95 K/uL (4.8-10.8)
[2018-04-16 18:31] LABS: ISTAT CREATININE 0.9 mg/dl (0.6-1.3); ISTAT IONIZED CALCIUM 1.11 mmol/l (1.12-1.32); ISTAT POTASSIUM 3.1 mEq/L (3.3-5.0)
[2018-04-16 18:39] LABS: ALBUMIN 3.3 gm/dl (3.4-5.0); ALKALINE PHOSPHATASE 80 U/L (45-117); ALT/SGPT 12 U/L (12-78); AST/SGOT 13 U/L (15-37); BLOOD UREA NITROGEN 14 mg/dl (7-18); CALCIUM 8.8 mg/dl (8.5-10.1); CARBON DIOXIDE 26 mmol/L (21-32); CREATININE 0.95 mg/dl (0.60-1.40); GLUCOSE 80 mg/dl (70-99); LIPASE 37 U/L (73-393); POTASSIUM 3.1 mmol/L (3.5-5.1); SODIUM 138 mmol/L (136-145); TOTAL PROTEIN 7.4 gm/dl (6.4-8.2)
[2018-04-16] MEDS ORDERED: OPTIRAY 320 IV PRN (19:15)
--- NOTE | 2018-04-16 19:48 | DIAGNOSTIC IMAGING REPORT ---
CT ABD/PELVIS IV CONTRAST ONLY CLINICAL HISTORY: Left lower quadrant abdominal pain and constipation COMPARISON STUDY: March 22, 2018 TECHNIQUE: Following the IV administration of 94 mL of Optiray-320, CT scan of the abdomen and pelvis was performed from the lung bases to the proximal femurs. Images are reviewed in the axial, sagittal, and coronal planes. IV contrast was administered without complication. A dose lowering technique was utilized adhering to the principles of ALARA. CT DOSE: 574.93 mGycm FINDINGS: Lower chest: There is pulmonary emphysema. There is azygous or scarring. There is a prominent hiatal hernia. Liver: There is mild hepatic steatosis. No focal masses are visualized. Gallbladder: Unremarkable. Spleen: Normal in size and attenuation. Pancreas: Unremarkable. Adrenal glands: Unremarkable. Kidneys: No solid renal masses are visualized. Subcentimeter renal hypodensities are felt to represent cysts. There is a nonobstructing 3 mm right renal calculus. Bowel: There are no transition zones indicate bowel obstruction. There is significant fecal retention. The rectum is distended and measures 8.9 cm in diameter. There is no acute appendicitis. There is no evidence of acute diverticulitis. Peritoneum: There is no intraperitoneal free air or abdominal ascites. Vasculature: There is ectasia of the infra renal abdominal aorta which measures 27 mm. Adenopathy: None. Pelvic viscera: There is mild prostamegaly. The prostate appears slightly deformed by the large amount stool within the rectal vault. Skeletal structures: There is a persistent moderate T12 compression fracture. IMPRESSION: 1. Suspected fecal impaction. The rectum is distended and measures 8.9 cm. There is minimal perirectal edema. 2. No evidence of free air. 3. No evidence of acute diverticulitis. No evidence of acute appendicitis. 4. Nonobstructing right renal calculus 5. Hiatal hernia Electronically signed by: Jose Frias M.D. 04/16/2018 7:47 PM Dictated Date/Time: 04/16/2018 7:41 PM
[2018-04-16] MEDS ORDERED: METOCLOPRAMIDE HCL INJ 5 MG/ML 2 ML VIAL IV. STA (19:56)
[2018-04-16] MEDS ORDERED: SOD PHOSPHATE/SOD BIPHOSPHATE ENEMA 132 ML BTL PR STA (19:56)
[2018-04-16] MEDS ORDERED: LACTULOSE SYRUP 20 GM/30 ML UDC PO STA (19:56)
[2018-04-16] MEDS ORDERED: DOCUSATE SODIUM/SENNA 50/8.6MG TAB PO ONE (20:00)
[2018-04-16 21:50] VITALS: BP 162/89; PULSE 79; O2SAT 96
== END 2018-04-16 21:50 | disposition home or self-care (01) ==
LOC: C.EDB 17:38
DX: K56.41 Fecal impaction (principal); D64.9 Anemia, unspecified; E87.6 Hypokalemia; K57.90 Diverticulosis of intestine, part unspecified, without perforation or abscess without bleeding; I10 Essential (primary) hypertension; E11.9 Type 2 diabetes mellitus without complications; E78.5 Hyperlipidemia, unspecified; Z79.4 Long term (current) use of insulin; Z79.82 Long term (current) use of aspirin; Z79.899 Other long term (current) drug therapy

== ENCOUNTER 2018-10-13 14:15 | Inpatient (IN) ==
[2018-10-13 16:22] LABS: Basophils # (auto) 0.03 K/uL (0-0.2); Basophils % (auto) 0.8 %; Eosinophils # (auto) 0.11 K/uL (0-0.5); Eosinophils % (auto) 2.8 %; Hematocrit (blood only) 34.9 % (42-52); Hemoglobin 12.3 g/dL (14.0-18.0); Immature Granulocytes # (auto) 0.01 K/uL (0.00-0.02); Immature Granulocytes % (auto) 0.3 %; Lymphocytes # (auto) 1.01 K/uL (1.2-3.4); Lymphocytes % (auto) 25.4 %; Mean Corpuscular Hgb Conc 35.2 g/dL (32-36); Mean Corpuscular Volume 93.3 fL (80-100); Monocytes % (auto) 7.6 %; Neutrophils # (auto) 2.51 K/uL (1.4-6.5); Neutrophils % (auto) 63.1 %; Platelet Count 226 K/uL (130-400); RDW Coefficient of Variation 14.7 % (11.5-14.5); RDW Standard Deviation 50.2 fL (36.4-46.3); Red Blood Count 3.74 M/uL (4.7-6.1); White Blood Count 3.97 K/uL (4.8-10.8)
[2018-10-13 16:43] LABS: Alanine Aminotransferase 10 U/L (12-78); Albumin Level 3.1 gm/dl (3.4-5.0); Aspartate Aminotransferase 9 U/L (15-37); BUN Creatinine Ratio 8.8 (10-20); Bilirubin Direct 0.2 mg/dl (0-0.2); Blood Urea Nitrogen 8 mg/dl (7-18); Calcium 8.9 mg/dl (8.5-10.1); Carbon Dioxide 31 mmol/L (21-32); Chloride 97 mmol/L (98-107); Est GFR (African American) 86.1; Est GFR (Non-African American) 74.2; Glucose 253 mg/dl (70-99); Potassium 2.7 mmol/L (3.5-5.1); Sodium 137 mmol/L (136-145)
[2018-10-13 16:48] LABS: Alkaline Phosphatase 88 U/L (45-117); Bilirubin,Total 0.6 mg/dl (0.2-1); Total Protein 7.9 gm/dl (6.4-8.2); Troponin I < 0.015 ng/ml (0-0.045)
[2018-10-13 18:12] LABS: Appearance Urine Clear (Clear); Bacteria Urine Automated 1+ (Negative); Bilirubin Urine Negative (Negative); Color Urine Yellow; Epithelial Cell Urine Auto 0-5 /lpf (0-5); Glucose Urine UA Trace (Negative); Ketones Urine Negative (Negative); Leukocyte Esterase Urine 3+ (Negative); Nitrite Urine Negative (Negative); Protein Urine Negative (Negative); Specific Gravity Urine 1.011 (1.000-1.030); Urobilinogen Urine Negative (Negative); pH Urine 7.5 (4.5-7.5)
[2018-10-14 06:39] LABS: Basophils # (auto) 0.02 K/uL (0-0.2); Basophils % (auto) 0.5 %; Eosinophils # (auto) 0.11 K/uL (0-0.5); Eosinophils % (auto) 2.6 %; Hematocrit (blood only) 33.3 % (42-52); Hemoglobin 11.4 g/dL (14.0-18.0); Immature Granulocytes # (auto) 0.01 K/uL (0.00-0.02); Immature Granulocytes % (auto) 0.2 %; Lymphocytes # (auto) 1.12 K/uL (1.2-3.4); Mean Corpuscular Hgb Conc 34.2 g/dL (32-36); Mean Corpuscular Volume 92.8 fL (80-100); Mean Platelet Volume 9.8 fL (7.4-10.4); Monocytes # (auto) 0.36 K/uL (0.11-0.59); Monocytes % (auto) 8.4 %; Neutrophils # (auto) 2.69 K/uL (1.4-6.5); Neutrophils % (auto) 62.3 %; Platelet Count 188 K/uL (130-400); RDW Coefficient of Variation 14.5 % (11.5-14.5); RDW Standard Deviation 49.4 fL (36.4-46.3); Red Blood Count 3.59 M/uL (4.7-6.1); White Blood Count 4.31 K/uL (4.8-10.8)
[2018-10-14 06:54] LABS: INR 1.1 (0.9-1.1); Prothrombin Time 11.3 Seconds (9.0-12.0)
[2018-10-14 07:15] LABS: BUN Creatinine Ratio 8.4 (10-20); Calcium 8.4 mg/dl (8.5-10.1); Creatinine Clr Calc Pharmacy 57.4 ml/min; Est GFR (African American) 95.4; Est GFR (Non-African American) 82.4; Magnesium 2.1 mg/dl (1.8-2.4); Potassium 3.2 mmol/L (3.5-5.1)
[2018-10-14 14:34] LABS: Influenza A virus by PCR Neg for Influ A (Neg); Influenza B virus by PCR Neg for Influ B (Neg)
[2018-10-15 06:30] LABS: BUN Creatinine Ratio 9.4 (10-20); Calcium 8.5 mg/dl (8.5-10.1); Est GFR (African American) 87.2; Est GFR (Non-African American) 75.2; Potassium 3.3 mmol/L (3.5-5.1)
[2018-10-16 05:56] LABS: Basophils # (auto) 0.03 K/uL (0-0.2); Basophils % (auto) 0.6 %; Eosinophils # (auto) 0.08 K/uL (0-0.5); Eosinophils % (auto) 1.7 %; Hematocrit (blood only) 31.3 % (42-52); Hemoglobin 10.4 g/dL (14.0-18.0); Immature Granulocytes # (auto) 0.01 K/uL (0.00-0.02); Immature Granulocytes % (auto) 0.2 %; Lymphocytes # (auto) 0.99 K/uL (1.2-3.4); Lymphocytes % (auto) 21.3 %; Mean Corpuscular Hgb Conc 33.2 g/dL (32-36); Mean Corpuscular Volume 94.6 fL (80-100); Mean Platelet Volume 10.6 fL (7.4-10.4); Monocytes % (auto) 6.5 %; Neutrophils # (auto) 3.23 K/uL (1.4-6.5); Neutrophils % (auto) 69.7 %; Platelet Count 206 K/uL (130-400); RDW Standard Deviation 52.2 fL (36.4-46.3); Red Blood Count 3.31 M/uL (4.7-6.1); White Blood Count 4.64 K/uL (4.8-10.8)
[2018-10-16 06:25] LABS: BUN Creatinine Ratio 12.5 (10-20); Calcium 8.6 mg/dl (8.5-10.1); Creatinine Clr Calc Pharmacy 48.5 ml/min; Est GFR (African American) 83.9; Est GFR (Non-African American) 72.4; Magnesium 2.2 mg/dl (1.8-2.4); Potassium 3.5 mmol/L (3.5-5.1)
[2018-10-16 07:19] LABS: Estimated Average Glucose 174 mg/dl
== END 2018-10-19 14:42 ==
LOC: ED 14:15 → 4E 14:15 → SUATTDRO 21:47 → 4E 22:18

== ENCOUNTER 2018-12-21 14:11 | Inpatient (IN) ==
[2018-12-21] MEDS ORDERED: SODIUM CHLORIDE 0.9% 1000ML 1,000 ML IV ONE (15:20)
--- NOTE | 2018-12-21 15:55 | XRay Report ---
XR chest 1V portable CLINICAL HISTORY: Chest Pain COMPARISON STUDY: Chest radiograph October 13, 2018. FINDINGS: Lung volumes are normal. There is no pneumothorax or pleural effusion. There is no consolid ation or evidence for pulmonary edema. Cardiac size is normal. A moderate sized hiatal hernia is note d. The appearance the chest is unchanged. Skinfolds project over the hemithorax. IMPRESSION: 1. No acute cardiopulmonary findings. 2. Moderate sized hiatal hernia. Electronically signed by: Haroldo Manuel M.D. 12/21/2018 3:54 PM
[2018-12-21 16:08] LABS: Basophils # (auto) 0.02 K/uL (0-0.2); Basophils % (auto) 0.4 %; Eosinophils # (auto) 0.16 K/uL (0-0.5); Eosinophils % (auto) 3.4 %; Hematocrit (blood only) 30.8 % (42-52); Hemoglobin 10.3 g/dL (14.0-18.0); Immature Granulocytes # (auto) 0.01 K/uL (0.00-0.02); Immature Granulocytes % (auto) 0.2 %; Lymphocytes # (auto) 1.11 K/uL (1.2-3.4); Lymphocytes % (auto) 23.5 %; Mean Corpuscular Hgb Conc 33.4 g/dL (32-36); Mean Corpuscular Volume 95.7 fL (80-100); Monocytes # (auto) 0.45 K/uL (0.11-0.59); Monocytes % (auto) 9.5 %; Neutrophils # (auto) 2.97 K/uL (1.4-6.5); Platelet Count 145 K/uL (130-400); RDW Coefficient of Variation 15.5 % (11.5-14.5); RDW Standard Deviation 54.5 fL (36.4-46.3); Red Blood Count 3.22 M/uL (4.7-6.1); White Blood Count 4.72 K/uL (4.8-10.8)
[2018-12-21 16:17] LABS: INR 1.1 (0.9-1.1)
[2018-12-21 16:18] LABS: Appearance Urine Cloudy (Clear); Bacteria Urine Automated Negative (Negative); Bilirubin Urine Negative (Negative); Blood Urine Negative (Negative); Color Urine Yellow; Glucose Urine UA Negative (Negative); Ketones Urine Negative (Negative); Leukocyte Esterase Urine 3+ (Negative); Nitrite Urine Positive (Negative); Protein Urine Negative (Negative); RBC Urine Automated 0-4 /hpf (0-4); Specific Gravity Urine 1.022 (1.000-1.030); Urobilinogen Urine Negative (Negative); WBC Urine Automated >30 /hpf (0-5); pH Urine 6.5 (4.5-7.5)
[2018-12-21 16:28] LABS: Alanine Aminotransferase 14 U/L (12-78); Aspartate Aminotransferase 11 U/L (15-37); BUN Creatinine Ratio 18.4 (10-20); Blood Urea Nitrogen 20 mg/dl (7-18); Carbon Dioxide 28 mmol/L (21-32); Chloride 104 mmol/L (98-107); Est GFR (African American) 72.9; Est GFR (Non-African American) 62.9; Glucose 156 mg/dl (70-99); Magnesium 2.2 mg/dl (1.8-2.4); Potassium 4.1 mmol/L (3.5-5.1); Sodium 135 mmol/L (136-145)
[2018-12-21 16:33] LABS: Albumin Globulin Ratio 0.7 (0.9-2); Alkaline Phosphatase 81 U/L (45-117); Bilirubin,Total 0.4 mg/dl (0.2-1); Globulin 4.1 gm/dl (2.5-4.0); Total Protein 7.1 gm/dl (6.4-8.2); Troponin I < 0.015 ng/ml (0-0.045)
[2018-12-21] MEDS ORDERED: IOVERSOL 100ml IV PRN (17:01)
--- NOTE | 2018-12-21 17:12 | CT Scan Report ---
CT OF THE HEAD WITHOUT CONTRAST CLINICAL HISTORY: Fall. COMPARISON STUDY: Head CT June 27, 2018. CT DOSE: 926.32 mGy.cm TECHNIQUE: Helical axial images of the head were obtained without IV contrast. Automated exposure con trol was utilized for the study. A dose lowering technique was utilized adhering to the principles o f ALARA. FINDINGS: No acute intracranial hemorrhage, midline shift or mass effect is present. Ventricular syst em is stable. Basilar cisterns are patent. There are no extra axial collections. White matter hypoden sity suggests small vessel disease. Old left nasal deformity is noted. There is polypoid mucosal thic kening within the sinuses which is unchanged. Small amount of fluid within left mastoid air cells is unchanged. There is no calvarial fracture. IMPRESSION: 1. No acute intracranial findings. 2. No calvarial fracture. Electronically signed by: Haroldo Manuel M.D. 12/21/2018 5:11 PM
--- NOTE | 2018-12-21 17:25 | CT Scan Report ---
ABDOMEN AND PELVIS CT WITH IV CONTRAST CT DOSE: HISTORY: Generalized abd pain, urinary retention/clogged heredia TECHNIQUE: Multiaxial CT images of the abdomen and pelvis were performed following the use of intrave nous contrast. A dose lowering technique was utilized adhering to the principles of ALARA. No significant abnormality identified within the abdomen or pelvis. COMPARISON STUDY: Abdomen and pelvis CT 04/16/2018. FINDINGS: Bibasilar linear densities consistent with subsegmental atelectasis. No suspicious lytic or blastic osseous lesions. Large hiatus hernia containing the majority of the stomach. This remains un changed. There are few scattered subcentimeter hypodense lesions within the liver. These are not sign ificantly changed and likely benign. The the spleen, adrenal glands, pancreas, and gallbladder are un remarkable. A few subcentimeter hypodense lesions within the left kidney. These are too small to filipe acterize but favor cysts. These are not significantly changed. Punctate nonobstructing stone within t he right kidney, unchanged. Mild fullness within the bilateral renal collecting systems without orlin hydronephrosis. This is progressed in the interval. The ureters are also prominent to the level of t he ureterovesical junctions. Bladder is decompressed by Heredia catheter. There is moderate bladder wal l thickening. Prostate gland is enlarged. No pelvic lymphadenopathy. The rectum is distended by large stool ball which is similar to the prior study. This measures 9.2 cm in diameter. Mild perirectal ed jessica/inflammatory change persists. Colonic diverticulosis. No evidence for diverticulitis. Multiple ca lcifications/stones within the bladder. Calcified plaque within the mildly ectatic abdominal aorta. T his measures up to 2.9 cm in diameter. No retroperitoneal lymphadenopathy. No change in the chronic m oderate compression deformity at T12. IMPRESSION: 1. Large stool ball with mild rectal wall thickening and perirectal edema/fat stranding. This is conc erning for a stercoral proctitis. The stool ball measures 9.2 cm in diameter. This is similar to the prior study. 2. This results in mass effect along the bladder. However, the bladder is completely decompressed by the Heredia catheter. 3. Mild fullness within the bilateral renal collecting systems and ureters to the level of the ureter ovesical junction. No obstructing stones identified. This has progressed. 4. Right-sided nephrolithiasis. 5. Large hiatus hernia. 6. Colonic diverticulosis. No evidence for diverticulitis. 7. Stable chronic moderate compression deformity at T12. Electronically signed by: Bob Barber M.D. 12/21/2018 5:22 PM
[2018-12-21] MEDS ORDERED: cefTRIAXone SODIUM 1,000 MG/50 ML BAG IV STA (18:43)
--- NOTE | 2018-12-21 19:56 | Emergency Department Note ---
Entered by Radha Pino acting as a scribe for Thomas Fonseca MD History of Present Illness General Chief complaint: Urinary Symptoms Stated complaint: BLADDER INFECTION Time Seen by Provider: 12/21/18 14:57 Source: patient and family () Limitations: no limitations History of Present Illness Provider complaint: urinary symptoms Onset (ago): day(s) 2 Location: genitals Radiation: abdomen Associated symptoms: + weakness and + other (+abdominal pain, +genital pain) Treatments prior to arrival: none The patient is a 83 year old male who presents to the Emergency Room with complaints of urinary symptoms that began 2 days prior to arrival. The patient states that he has increased weakness, abdominal pain, and pain in his genitals. Per , the patient had his catheter changed 1 day prior to arrival because is was not draining and states that it usually gets changed 1x a month. Per , the patient fell out of bed 2 nights prior to arrival and was unable to get up on his own. Per , the patient is usually able to walk with a walker but states that he is unable to at this time. Home Medications Home Medications Medication Instructions Recorded Confirmed Type aspirin 81 mg PO DAILY 06/27/18 12/21/18 History calcium carbonate [Tums] 200 mg PO UD PRN 06/27/18 12/21/18 History cholecalciferol (vitamin D3) 1,000 unit PO DAILY 06/27/18 12/21/18 History [Vitamin D3] insulin aspart U-100 0 units SUBCUT TIDM 06/27/18 12/21/18 History pravastatin 20 mg PO DAILY 06/27/18 12/21/18 History sertraline 25 mg PO DAILY 06/27/18 12/21/18 History acetaminophen [Tylenol Extra 1,000 mg PO BID PRN 10/13/18 12/21/18 History Strength] insulin glargine 20 unit SUBCUT QAM 12/21/18 12/21/18 History sennosides-docusate sodium [Senna 1 tab PO QAM PRN 12/21/18 12/21/18 History with Docusate Sodium] Allergies Allergy/AdvReac Type Severity Reaction Status Date / Time No Known Allergies Allergy NONE Verified 06/27/18 14:02 Past Med/Surg History Medical History Reflux esophagitis Urinary retention (Resolved) Anemia (Chronic) Chronic constipation (Chronic) Type 2 diabetes mellitus (Chronic) Benign prostate hyperplasia (Chronic) Hyperlipidemia (Chronic) Hypertension (Chronic) Frequent falls (Chronic) Peripheral neuropathy (Chronic) Diverticulosis Hypokalemia Metabolic encephalopathy Sepsis Surgical History History of tonsillectomy Family History Other Benign essential HTN Social History Communication Ability: Effective Beliefs That Will Affect Care: None marital status: Current Living Situation: Spouse Other Information That Helps Us Care for You: No Feels Safe at Home: Yes Safety Concerns: Feels Safe At This Time Smoking Status: Never smoker Hx Alcohol Use: No Hx Substance Use: No Review of Systems See HPI for pertinent positives & negatives. and A total of 10 systems reviewed and were otherwise negative Physical Exam Vital Signs Vital Signs - 24 hr 12/21/18 23:23 12/21/18 23:35 12/22/18 00:11 Temperature 36.4 C L 36.4 C L Temperature Source Oral Oral Pulse Rate 68 Pulse Rate [Right Finger] 68 68 Respiratory Rate 16 16 Respiratory Effort / Characteristics Non-Labored Non-Labored Respiratory Depth Normal Normal Respiratory Pattern Regular Regular Blood Pressure [Right Arm] 173/79 H 173/79 H Blood Pressure Mean [Right Arm] 110 110 Blood Pressure Position [Right Arm] Pulse Oximetry 98 98 Oxygen Delivery Method Room Air Room Air 12/22/18 03:53 12/22/18 08:00 12/22/18 08:23 Temperature 36.8 C 36.6 C Temperature Source Oral Oral Pulse Rate 64 Pulse Rate [Right Finger] 68 63 Respiratory Rate 18 18 Respiratory Effort / Characteristics Respiratory Depth Respiratory Pattern Blood Pressure [Right Arm] 160/78 H 165/76 H Blood Pressure Mean [Right Arm] 105 105 Blood Pressure Position [Right Arm] Lying Lying Pulse Oximetry 92 97 Oxygen Delivery Method Room Air Room Air 12/22/18 11:38 Temperature 36.3 C L Temperature Source Oral Pulse Rate Pulse Rate [Right Finger] 67 Respiratory Rate 18 Respiratory Effort / Characteristics Respiratory Depth Respiratory Pattern Blood Pressure [Right Arm] 162/76 H Blood Pressure Mean [Right Arm] 104 Blood Pressure Position [Right Arm] Lying Pulse Oximetry 95 Oxygen Delivery Method Room Air GENERAL: Awake, alert, fatigued-appearing, in no distress HENT: Normocephalic, atraumatic. Oropharynx with dry mucous membranes and otherwise unremarkable. EYES: Normal conjunctiva. Sclera non-icteric. NECK: Supple. No nuchal rigidity. FROM. No JVD. RESPIRATORY: Clear to auscultation. CARDIAC: Regular rate, normal rhythm. Extremities warm and well perfused. Pulses equal. ABDOMEN: Soft, non-distended. No tenderness to palpation. No rebound or guarding. No masses. RECTAL: Deferred. : Heredia catheter in place, draining appropriately. Normal external genitalia. MUSCULOSKELETAL: Chest examination reveals no tenderness. The back is symmetrical on inspection without obvious abnormality. There is no CVA tenderness to palpation. No joint edema. LOWER EXTREMITIES: Calves are equal size bilaterally and non-tender. No edema. No discoloration. NEURO: Normal sensorium. No sensory or motor deficits noted. 5/5 strength and SILT in upper and lower extremities. SKIN: No rash or jaundice noted. Course 1501: Past medical records reviewed. The patient was evaluated in room A12A, and a complete history and physical examination were performed. 1610: I checked on and updated the patient on his results. 1844: I discussed the patient's case with Dr. King [facility] Hospitalist. However, near change of shift and so will discuss the case with Dr. Leiva [facility] Hospitalist on shift change. 2002: I discussed the [facility] who will evaluate the patient for further hospitalization. Consultations Consultation #1: Dr. King [facility] Hospitalist Time: 18:20 [facility]: 20:03 Administered Medications Acetaminophen (Tylenol) 1,000 mg PO BID PRN PRN Reason: Pain Stop: 01/20/19 23:22 Last Admin: 12/22/18 17:50 Dose: 1,000 mg Documented by: [id number] Aspirin (Ecotrin Ectab) 81 mg PO DAILY [facility] Stop: 01/21/19 08:59 Last Admin: 12/22/18 09:58 Dose: 81 mg Documented by: [id number] Bisacodyl (Dulcolax) 5 mg PO DAILY [facility] Stop: 12/25/18 08:59 Last Admin: 12/22/18 09:58 Dose: 5 mg Documented by: [id number] Enoxaparin Sodium (Lovenox) 40 mg SQ Q24H DIMITRY Stop: 01/21/19 05:59 Last Admin: 12/22/18 05:52 Dose: 40 mg Documented by: [id number] Sodium Chloride (Nss 1000ml) 1,000 mls @ 80 mls/hr IV .[id number] DIMITRY Stop: 01/21/19 00:44 Last Admin: 12/22/18 13:33 Dose: 80 mls/hr Documented by: [id number] Infusion: 12/22/18 13:12 Dose: 80 mls/hr Documented by: [id number] Admin: 12/22/18 00:42 Dose: 80 mls/hr Documented by: [id number] Ceftriaxone Sodium 1,000 mg/ (Dextrose) 50 mls @ 100 mls/hr IV Q24H DIMITRY Stop: 01/01/19 17:59 Last Admin: 12/22/18 20:50 Dose: 100 mls/hr Documented by: [id number] Insulin Aspart (Novolog Flexpen) 0 units SQ TIDM DIMITRY Stop: 01/21/19 07:59 Last Admin: 12/22/18 18:08 Dose: Not Given Documented by: [id number] Cosigned by: [id number] Admin: 12/22/18 12:27 Dose: 5 units Documented by: [id number] Cosigned by: [id number] Admin: 12/22/18 10:00 Dose: Not Given Documented by: [id number] Cosigned by: [id number] Insulin Glargine (Lantus Solostar Pen) 20 units SQ QAM DIMITRY Stop: 01/21/19 08:59 Last Admin: 12/22/18 09:59 Dose: 20 units Documented by: [id number] Cosigned by: [id number] Polyethylene Glycol (Miralax Powder Packet) 17 gm PO DAILY DIMITRY Stop: 12/24/18 08:59 Last Admin: 12/22/18 09:58 Dose: 17 gm Documented by: [id number] Polyethylene Glycol (Miralax Powder Packet) 17 gm PO Q4H DIMITRY Stop: 01/21/19 14:14 Last Admin: 12/22/18 20:52 Dose: Not Given Documented by: [id number] Admin: 12/22/18 20:51 Dose: 17 gm Documented by: [id number] Admin: 12/22/18 14:11 Dose: 17 gm Documented by: [id number] Potassium Chloride (Klor-Con M10) 40 meq PO DAILY DIMITRY Stop: 01/21/19 08:59 Last Admin: 12/22/18 09:58 Dose: 40 meq Documented by: [id number] Pravastatin Sodium (Pravachol) 20 mg PO DAILY DIMITRY Stop: 01/21/19 08:59 Last Admin: 12/22/18 09:58 Dose: 20 mg Documented by: [id number] Senna/Docusate Sodium (Senokot S) 1 tab PO QAM DIMITRY Stop: 01/21/19 08:59 Last Admin: 12/22/18 09:58 Dose: 1 tab Documented by: [id number] Sertraline HCl (Zoloft) 25 mg PO DAILY DIMITRY Stop: 01/21/19 08:59 Last Admin: 12/22/18 09:58 Dose: 25 mg Documented by: [id number] Vitamin D (Vitamin D3) 1,000 units PO DAILY DIMITRY Stop: 01/21/19 08:59 Last Admin: 12/22/18 09:58 Dose: 1,000 units Documented by: [id number] Discontinued Medications Bisacodyl (Dulcolax) 10 mg GA NOW STA Stop: 12/21/18 21:19 Last Admin: 12/21/18 21:31 Dose: 10 mg Documented by: [id number] Bisacodyl (Dulcolax) 5 mg PO NOW ONE Stop: 12/21/18 21:20 Last Admin: 12/21/18 21:31 Dose: 5 mg Documented by: [id number] Sodium Chloride (Nss 1000ml) 1,000 mls @ 999 mls/hr IV .Q1H1M ONE Stop: 12/21/18 16:20 Last Infusion: 12/21/18 16:54 Dose: 0 mls/hr Documented by: [id number] Admin: 12/21/18 16:05 Dose: 999 mls/hr Documented by: [id number] Ceftriaxone Sodium (Rocephin) 1,000 mg in 50 mls @ 100 mls/hr IV NOW STA Stop: 12/21/18 19:12 Last Infusion: 12/21/18 19:35 Dose: 0 mls/hr Documented by: [id number] Admin: 12/21/18 19:01 Dose: 100 mls/hr Documented by: [id number] Ioversol (Optiray 320 100ml) 94 ml IV ONCE PRN PRN Reason: Interaction Checking Stop: 12/25/18 17:00 Last Admin: 12/21/18 17:02 Dose: 94 ml Documented by: [id number] Medical Decision Making Differential Diagnosis The differential was considered includes acute myocardial infarction, acute coronary syndrome, myocarditis, pericarditis, pericardial effusions /tamponad, esophageal perforation, thoracic aortic dissection, pulmonary embolism, pneumonia, pneumothorax, pancreatitis, shingles, acute cholecystitis, perforated abdominal viscus. Medical Records Attestation: I reviewed the patient's medical records. Home Medications Current Medication List: was personally reviewed by me Laboratory Data Attestation: I reviewed the patient's lab results. Result diagrams: 12/22/18 06:03 12/22/18 06:03 Lab Results 12/21/18 12/21/18 12/21/18 Range/Units 16:00 16:00 16:00 WBC 4.72 L (4.8-10.8) K/uL RBC 3.22 L (4.7-6.1) M/uL Hgb 10.3 L (14.0-18.0) g/dL Hct 30.8 L (42-52) % MCV 95.7 (80-100) fL MCH 32.0 (25-34) pg MCHC 33.4 (32-36) g/dL RDW Std Deviation 54.5 H (36.4-46.3) fL RDW Coeff of Shauna 15.5 H (11.5-14.5) % Plt Count 145 (130-400) K/uL MPV 10.0 (7.4-10.4) fL Immature Gran % (Auto) 0.2 % Neut % (Auto) 63.0 % Lymph % (Auto) 23.5 % [place] % (Auto) 9.5 % Eos % (Auto) 3.4 % Baso % (Auto) 0.4 % Immature Gran # (Auto) 0.01 (0.00-0.02) K/uL Neut # (Auto) 2.97 (1.4-6.5) K/uL Lymph # (Auto) 1.11 L (1.2-3.4) K/uL [place] # (Auto) 0.45 (0.11-0.59) K/uL Eos # (Auto) 0.16 (0-0.5) K/uL Baso # (Auto) 0.02 (0-0.2) K/uL PT 11.0 (9.0-12.0) Seconds INR 1.1 (0.9-1.1) Sodium 135 L (136-145) mmol/L Potassium 4.1 (3.5-5.1) mmol/L Chloride 104 (98-107) mmol/L Carbon Dioxide 28 (21-32) mmol/L Anion Gap 3.0 (3-11) BUN 20 H (7-18) mg/dl Creatinine 1.09 (0.6-1.4) mg/dl Est Cr Clr Drug Dosing Not Reportable Est GFR ( Amer) 72.9 Est GFR (Non-Af Amer) 62.9 BUN/Creatinine Ratio 18.4 (10-20) Glucose 156 H (70-99) mg/dl POC Glucose (70-99) Calcium 8.0 L (8.5-10.1) mg/dl Phosphorus 3.0 (2.5-4.9) mg/dl Magnesium 2.2 (1.8-2.4) mg/dl Total Bilirubin 0.4 (0.2-1) mg/dl AST 11 L (15-37) U/L ALT 14 (12-78) U/L Alkaline Phosphatase 81 (45-117) U/L Troponin I < 0.015 (0-0.045) ng/ml Total Protein 7.1 (6.4-8.2) gm/dl Albumin 3.0 L (3.4-5.0) gm/dl Globulin 4.1 H (2.5-4.0) gm/dl Albumin/Globulin Ratio 0.7 L (0.9-2) Lipase 54 L (73-393) U/L Urine Color Urine Appearance (Clear) Urine pH (4.5-7.5) Ur Specific [place] (1.000-1.030) Urine Protein (Negative) Urine Glucose (UA) (Negative) Urine Ketones (Negative) Urine Blood (Negative) Urine Nitrite (Negative) Urine Bilirubin (Negative) Urine Urobilinogen (Negative) Ur Leukocyte Esterase (Negative) Urine WBC (Auto) (0-5) /hpf Urine RBC (Auto) (0-4) /hpf U Hyaline Cast (Auto) (0-5) /lpf U Epithel Cells (Auto) (0-5) /lpf Urine Bacteria (Auto) (Negative) 12/21/18 12/22/18 12/22/18 Range/Units 16:00 06:03 06:03 WBC 4.86 (4.8-10.8) K/uL RBC 3.14 L (4.7-6.1) M/uL Hgb 10.3 L (14.0-18.0) g/dL Hct 30.1 L (42-52) % MCV 95.9 (80-100) fL MCH 32.8 (25-34) pg MCHC 34.2 (32-36) g/dL RDW Std Deviation 54.7 H (36.4-46.3) fL RDW Coeff of Shauna 15.6 H (11.5-14.5) % Plt Count 161 (130-400) K/uL MPV 10.5 H (7.4-10.4) fL Immature Gran % (Auto) 0.2 % Neut % (Auto) 66.7 % Lymph % (Auto) 20.4 % [place] % (Auto) 8.0 % Eos % (Auto) 4.1 % Baso % (Auto) 0.6 % Immature Gran # (Auto) 0.01 (0.00-0.02) K/uL Neut # (Auto) 3.24 (1.4-6.5) K/uL Lymph # (Auto) 0.99 L (1.2-3.4) K/uL [place] # (Auto) 0.39 (0.11-0.59) K/uL Eos # (Auto) 0.20 (0-0.5) K/uL Baso # (Auto) 0.03 (0-0.2) K/uL PT (9.0-12.0) Seconds INR (0.9-1.1) Sodium 139 (136-145) mmol/L Potassium 3.4 L D (3.5-5.1) mmol/L Chloride 108 H (98-107) mmol/L Carbon Dioxide 26 (21-32) mmol/L Anion Gap 5.0 (3-11) BUN 17 (7-18) mg/dl Creatinine 0.90 (0.6-1.4) mg/dl Est Cr Clr Drug Dosing 55.1 Est GFR ( Amer) 91.9 Est GFR (Non-Af Amer) 79.3 BUN/Creatinine Ratio 19.1 (10-20) Glucose 54 L (70-99) mg/dl POC Glucose (70-99) Calcium 7.9 L (8.5-10.1) mg/dl Phosphorus (2.5-4.9) mg/dl Magnesium (1.8-2.4) mg/dl Total Bilirubin (0.2-1) mg/dl AST (15-37) U/L ALT (12-78) U/L Alkaline Phosphatase (45-117) U/L Troponin I (0-0.045) ng/ml Total Protein (6.4-8.2) gm/dl Albumin (3.4-5.0) gm/dl Globulin (2.5-4.0) gm/dl Albumin/Globulin Ratio (0.9-2) Lipase (73-393) U/L Urine Color Yellow Urine Appearance Cloudy H (Clear) Urine pH 6.5 (4.5-7.5) Ur Specific [place] 1.022 (1.000-1.030) Urine Protein Negative (Negative) Urine Glucose (UA) Negative (Negative) Urine Ketones Negative (Negative) Urine Blood Negative (Negative) Urine Nitrite Positive H (Negative) Urine Bilirubin Negative (Negative) Urine Urobilinogen Negative (Negative) Ur Leukocyte Esterase 3+ H (Negative) Urine WBC (Auto) >30 H (0-5) /hpf Urine RBC (Auto) 0-4 (0-4) /hpf U Hyaline Cast (Auto) 10-30 H (0-5) /lpf U Epithel Cells (Auto) 5-10 H (0-5) /lpf Urine Bacteria (Auto) Negative (Negative) 12/22/18 12/22/18 12/22/18 Range/Units 07:49 07:50 08:15 WBC (4.8-10.8) K/uL RBC (4.7-6.1) M/uL Hgb (14.0-18.0) g/dL Hct (42-52) % MCV (80-100) fL MCH (25-34) pg MCHC (32-36) g/dL RDW Std Deviation (36.4-46.3) fL RDW Coeff of Shauna (11.5-14.5) % Plt Count (130-400) K/uL MPV (7.4-10.4) fL Immature Gran % (Auto) % Neut % (Auto) % Lymph % (Auto) % [place] % (Auto) % Eos % (Auto) % Baso % (Auto) % Immature Gran # (Auto) (0.00-0.02) K/uL Neut # (Auto) (1.4-6.5) K/uL Lymph # (Auto) (1.2-3.4) K/uL [place] # (Auto) (0.11-0.59) K/uL Eos # (Auto) (0-0.5) K/uL Baso # (Auto) (0-0.2) K/uL PT (9.0-12.0) Seconds INR (0.9-1.1) Sodium (136-145) mmol/L Potassium (3.5-5.1) mmol/L Chloride (98-107) mmol/L Carbon Dioxide (21-32) mmol/L Anion Gap (3-11) BUN (7-18) mg/dl Creatinine (0.6-1.4) mg/dl Est Cr Clr Drug Dosing Est GFR ( Amer) Est GFR (Non-Af Amer) BUN/Creatinine Ratio (10-20) Glucose (70-99) mg/dl POC Glucose 58 L* 55 L* 68 L* (70-99) Calcium (8.5-10.1) mg/dl Phosphorus (2.5-4.9) mg/dl Magnesium (1.8-2.4) mg/dl Total Bilirubin (0.2-1) mg/dl AST (15-37) U/L ALT (12-78) U/L Alkaline Phosphatase (45-117) U/L Troponin I (0-0.045) ng/ml Total Protein (6.4-8.2) gm/dl Albumin (3.4-5.0) gm/dl Globulin (2.5-4.0) gm/dl Albumin/Globulin Ratio (0.9-2) Lipase (73-393) U/L Urine Color Urine Appearance (Clear) Urine pH (4.5-7.5) Ur Specific [place] (1.000-1.030) Urine Protein (Negative) Urine Glucose (UA) (Negative) Urine Ketones (Negative) Urine Blood (Negative) Urine Nitrite (Negative) Urine Bilirubin (Negative) Urine Urobilinogen (Negative) Ur Leukocyte Esterase (Negative) Urine WBC (Auto) (0-5) /hpf Urine RBC (Auto) (0-4) /hpf U Hyaline Cast (Auto) (0-5) /lpf U Epithel Cells (Auto) (0-5) /lpf Urine Bacteria (Auto) (Negative) 12/22/18 12/22/18 12/22/18 Range/Units 08:17 11:59 17:01 WBC (4.8-10.8) K/uL RBC (4.7-6.1) M/uL Hgb (14.0-18.0) g/dL Hct (42-52) % MCV (80-100) fL MCH (25-34) pg MCHC (32-36) g/dL RDW Std Deviation (36.4-46.3) fL RDW Coeff of Shauna (11.5-14.5) % Plt Count (130-400) K/uL MPV (7.4-10.4) fL Immature Gran % (Auto) % Neut % (Auto) % Lymph % (Auto) % [place] % (Auto) % Eos % (Auto) % Baso % (Auto) % Immature Gran # (Auto) (0.00-0.02) K/uL Neut # (Auto) (1.4-6.5) K/uL Lymph # (Auto) (1.2-3.4) K/uL [place] # (Auto) (0.11-0.59) K/uL Eos # (Auto) (0-0.5) K/uL Baso # (Auto) (0-0.2) K/uL PT (9.0-12.0) Seconds INR (0.9-1.1) Sodium (136-145) mmol/L Potassium (3.5-5.1) mmol/L Chloride (98-107) mmol/L Carbon Dioxide (21-32) mmol/L Anion Gap (3-11) BUN (7-18) mg/dl Creatinine (0.6-1.4) mg/dl Est Cr Clr Drug Dosing Est GFR ( Amer) Est GFR (Non-Af Amer) BUN/Creatinine Ratio (10-20) Glucose (70-99) mg/dl POC Glucose 81 186 H 78 (70-99) Calcium (8.5-10.1) mg/dl Phosphorus (2.5-4.9) mg/dl Magnesium (1.8-2.4) mg/dl Total Bilirubin (0.2-1) mg/dl AST (15-37) U/L ALT (12-78) U/L Alkaline Phosphatase (45-117) U/L Troponin I (0-0.045) ng/ml Total Protein (6.4-8.2) gm/dl Albumin (3.4-5.0) gm/dl Globulin (2.5-4.0) gm/dl Albumin/Globulin Ratio (0.9-2) Lipase (73-393) U/L Urine Color Urine Appearance (Clear) Urine pH (4.5-7.5) Ur Specific [place] (1.000-1.030) Urine Protein (Negative) Urine Glucose (UA) (Negative) Urine Ketones (Negative) Urine Blood (Negative) Urine Nitrite (Negative) Urine Bilirubin (Negative) Urine Urobilinogen (Negative) Ur Leukocyte Esterase (Negative) Urine WBC (Auto) (0-5) /hpf Urine RBC (Auto) (0-4) /hpf U Hyaline Cast (Auto) (0-5) /lpf U Epithel Cells (Auto) (0-5) /lpf Urine Bacteria (Auto) (Negative) 12/22/18 Range/Units 20:23 WBC (4.8-10.8) K/uL RBC (4.7-6.1) M/uL Hgb (14.0-18.0) g/dL Hct (42-52) % MCV (80-100) fL MCH (25-34) pg MCHC (32-36) g/dL RDW Std Deviation (36.4-46.3) fL RDW Coeff of Shauna (11.5-14.5) % Plt Count (130-400) K/uL MPV (7.4-10.4) fL Immature Gran % (Auto) % Neut % (Auto) % Lymph % (Auto) % [place] % (Auto) % Eos % (Auto) % Baso % (Auto) % Immature Gran # (Auto) (0.00-0.02) K/uL Neut # (Auto) (1.4-6.5) K/uL Lymph # (Auto) (1.2-3.4) K/uL [place] # (Auto) (0.11-0.59) K/uL Eos # (Auto) (0-0.5) K/uL Baso # (Auto) (0-0.2) K/uL PT (9.0-12.0) Seconds INR (0.9-1.1) Sodium (136-145) mmol/L Potassium (3.5-5.1) mmol/L Chloride (98-107) mmol/L Carbon Dioxide (21-32) mmol/L Anion Gap (3-11) BUN (7-18) mg/dl Creatinine (0.6-1.4) mg/dl Est Cr Clr Drug Dosing Est GFR ( Amer) Est GFR (Non-Af Amer) BUN/Creatinine Ratio (10-20) Glucose (70-99) mg/dl POC Glucose 99 (70-99) Calcium (8.5-10.1) mg/dl Phosphorus (2.5-4.9) mg/dl Magnesium (1.8-2.4) mg/dl Total Bilirubin (0.2-1) mg/dl AST (15-37) U/L ALT (12-78) U/L Alkaline Phosphatase (45-117) U/L Troponin I (0-0.045) ng/ml Total Protein (6.4-8.2) gm/dl Albumin (3.4-5.0) gm/dl Globulin (2.5-4.0) gm/dl Albumin/Globulin Ratio (0.9-2) Lipase (73-393) U/L Urine Color Urine Appearance (Clear) Urine pH (4.5-7.5) Ur Specific [place] (1.000-1.030) Urine Protein (Negative) Urine Glucose (UA) (Negative) Urine Ketones (Negative) Urine Blood (Negative) Urine Nitrite (Negative) Urine Bilirubin (Negative) Urine Urobilinogen (Negative) Ur Leukocyte Esterase (Negative) Urine WBC (Auto) (0-5) /hpf Urine RBC (Auto) (0-4) /hpf U Hyaline Cast (Auto) (0-5) /lpf U Epithel Cells (Auto) (0-5) /lpf Urine Bacteria (Auto) (Negative) Imaging Data Radiologist's Impression: Radiology results as stated below per my review and the radiologist's interpretation: ABDOMEN AND PELVIS CT WITH IV CONTRAST CT DOSE: HISTORY: Generalized abd pain, urinary retention/clogged heredia TECHNIQUE: Multiaxial CT images of the abdomen and pelvis were performed following the use of intravenous contrast. A dose lowering technique was utilized adhering to the principles of ALARA. No significant abnormality identified within the abdomen or pelvis. COMPARISON STUDY: Abdomen and pelvis CT 04/16/2018. FINDINGS: Bibasilar linear densities consistent with subsegmental atelectasis. No suspicious lytic or blastic osseous lesions. Large hiatus hernia containing the majority of the stomach. This remains unchanged. There are few scattered subcentimeter hypodense lesions within the liver. These are not significantly changed and likely benign. The the spleen, adrenal glands, pancreas, and gallbladder are unremarkable. A few subcentimeter hypodense lesions within the left kidney. These are too small to characterize but favor cysts. These are not significantly changed. Punctate nonobstructing stone within the right kidney, unchanged. Mild fullness within the bilateral renal collecting systems without orlin hydronephrosis. This is progressed in the interval. The ureters are also prominent to the level of the ureterovesical junctions. Bladder is decompressed by Heredia catheter. There is moderate bladder wall thickening. Prostate gland is enlarged. No pelvic lymphadenopathy. The rectum is distended by large stool ball which is similar to the prior study. This measures 9.2 cm in diameter. Mild perirectal edema/inflammatory change persists. Colonic diverticulosis. No evidence for diverticulitis. Multiple calcifications/stones within the bladder. Calcified plaque within the mildly ectatic abdominal aorta. This measures up to 2.9 cm in diameter. No retroperitoneal lymphadenopathy. No change in the chronic moderate compression deformity at T12. IMPRESSION: 1. Large stool ball with mild rectal wall thickening and perirectal edema/fat stranding. This is concerning for a stercoral proctitis. The stool ball measures 9.2 cm in diameter. This is similar to the prior study. 2. This results in mass effect along the bladder. However, the bladder is completely decompressed by the Heredia catheter. 3. Mild fullness within the bilateral renal collecting systems and ureters to the level of the ureterovesical junction. No obstructing stones identified. This has progressed. 4. Right-sided nephrolithiasis. 5. Large hiatus hernia. 6. Colonic diverticulosis. No evidence for diverticulitis. 7. Stable chronic moderate compression deformity at T12. Electronically signed by: Bob Barber M.D. 12/21/2018 5:22 PM XR chest 1V portable CLINICAL HISTORY: Chest Pain COMPARISON STUDY: Chest radiograph October 13, 2018. FINDINGS: Lung volumes are normal. There is no pneumothorax or pleural effusion. There is no consolidation or evidence for pulmonary edema. Cardiac size is normal. A moderate sized hiatal hernia is noted. The appearance the chest is unchanged. Skinfolds project over the hemithorax. IMPRESSION: 1. No acute cardiopulmonary findings. 2. Moderate sized hiatal hernia. Electronically signed by: Haroldo Manuel M.D. 12/21/2018 3:[address] OF THE HEAD WITHOUT CONTRAST CLINICAL HISTORY: Fall. COMPARISON STUDY: Head CT June 27, 2018. CT DOSE: 926.32 mGy.cm TECHNIQUE: Helical axial images of the head were obtained without IV contrast. Automated exposure control was utilized for the study. A dose lowering technique was utilized adhering to the principles of ALARA. FINDINGS: No acute intracranial hemorrhage, midline shift or mass effect is present. Ventricular system is stable. Basilar cisterns are patent. There are no extra axial collections. White matter hypodensity suggests small vessel disease. Old left nasal deformity is noted. There is polypoid mucosal thickening within the sinuses which is unchanged. Small amount of fluid within left mastoid air cells is unchanged. There is no calvarial fracture. IMPRESSION: 1. No acute intracranial findings. 2. No calvarial fracture. Electronically signed by: Haroldo Manuel M.D. 12/21/2018 5:11 PM ECG Data Attestation: I personally reviewed and interpreted this ECG as follows: Indication: chest pain Rate (beats per minute): 91 Rhythm: sinus with SA Findings: + other (normal axis ); no acute ischemic change Blood Pressure Blood Pressure Findings: Elevated blood pressure Blood Pressure Disposition: elevated BP felt to be situational MDM Narrative The patient is a pleasant 83-year-old gentleman with a past medical history of indwelling Heredia catheter secondary to urinary retention secondary to BPH resents emergency department accompanied by daughters concern for urinary retention yesterday which did resolve after his Heredia was replaced but with subsequent generalized weakness unable to ambulate at his baseline with his walker per hpi. On arrival the patient is fatigued appearing but no acute distress, afebrile stable vital signs. On exam the patient appears clinically dry. Abdomen is benign. Urinary Heredia catheter is draining appropriately. He has no focal neurologic deficits and moves all extremities equally. EKG demonstrates normal sinus with left axis deviation without evidence of acute ischemia, and is similar to prior. Chest x-ray without consolidation or evidence of CHF. CT head negative for acute findings. CT the abdomen pelvis demonstrates large 9.2cm stool ball with evidence of possible stercoral proctitis. However, this is similar to the prior study and family does report that the patient has had daily bowel movements. Stool ball however does have mass-effect against the bladder which is otherwise decompressed by his Heredia catheter. There is mild fullness within the bilateral renal collecting systems and ureters to the level of the ureterovesical junction which may be related to his transient catheter blockage yesterday. WBC 4.7, nonspecific. H/H 10.3/30.8 similar to prior. Chemistry without acidosis. Troponin negative. UA with positive nitrites, LE 3+, WBC> 30, however with epithelial cells 5-10 and no bacteria. The patient's chronically indwelling Heredia catheter UA certainly could demonstrate contamination/colonization however, given the patient's gener alized weakness we will treat for now. Further, the patient's family report that he is too weak to be managed at home given that he lives alone with his elderly and is unable to ambulate at this time without significant assistance. According to the patient's insurance we are unable to place the patient directly into rehab and therefore admission is reasonable. Case was discussed with Dr. Smith, [facility] hospitalist, who will evaluate the patient for admission. Impression & Plan UTI (urinary tract infection), Generalized weakness Discharge Plan Visit Data *Final* Discharge Date/Time: 12/21/18 22:53 Chief Complaint: Urinary Symptoms Stated Complaint: BLADDER INFECTION ED Provider: Thomas Fonseca Discharge Problem: UTI (urinary tract infection), Generalized weakness Patient Disposition: Admitted As Inpatient Discharge Instructions Interventions: ED Discharge Assessment Last Done: 12/21/18 22:53 The scribe's documentation has been prepared under my direction and personally reviewed by me in its entirety. I confirm that the note above accurately reflects all work, treatment, procedures, and medical decision making performed by me.
[2018-12-21] MEDS ORDERED: BISACODYL 10 MG SUPP PR STA (21:18)
[2018-12-21] MEDS ORDERED: BISACODYL 5 MG TABEC PO ONE (21:19)
--- NOTE | 2018-12-21 21:20 | History & Physical Report ---
Date of Service December 21, 2018 Assessment & Plan (1) UTI (urinary tract infection): Chief Complaint: 83 y/o M Hx DM II, HLD, impaired gait, moderate dementia, anemia, chronic Bailey with recurrent UTIs and resultant weakness. 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 No fevers or rigors reported. The pt lives with his elderly who has difficulty caring for him when he becomes ill and cannot assist her. Last admitted 10/13/18 - 10/19/18 for similar complaints, then went to SNF for rehab, has been with home health since. Initial labs are notable for a + UA. Assessment: complicated UTI -on imaging abd/pelvis ct: large stool ball 9.2 cm, rectal wall thickening, similar to prior study. --> mass effect on bladder. +Progressive fullness within b/l renal collecting systems up to UVJ. Plan: -obs Med/surg -Rocephin IV, can switch to PO once cultures resulted -will obtain Renal U/S to r/o obstruction or other mech defect given 'progressive' fullness in collecting systems. -to treat underlying mass effect on bladder, commence with bowel regimen as below, and IV fluids FEN/GI: maintenance NSS at 80 ml/hr (to help with moving bowels), heart healthy/diabetic diet DVT ppx: lovenox q24h CODE STATUS: DNR when d/w pt, but and POA state his wishes likely more aligned with FULL. Will order FULL code at this time given pt's cognitive issues and questionable capacity. DISPO: med/surg, to await placement pending PT/OT maddie. Pt's "Yu" has requested that issues should be d/w pt's daughter Erendira stinson ([phone] work #) she works here in radiation nursing. (2) Generalized weakness: chronic, 2/2 age/frequent hospitalizations/comorbidities -has multiple in home nursing care -will likely benefit from short or termite treater helper SNF pending recs (3) Fecal impaction in rectum: miralax and dulcolax po and pr scheduled. -pt does not want enema at this point. Revisit. -rectal wall is chronically stretched unfortunately and will require months of bowel regimen for it to come back down to regular size. May or may not benefit from GI in outpatient setting. (4) Chronic indwelling Bailey catheter: changed in ED, chronic since 2018, follows Urology, no acute issues. (5) Type 2 diabetes mellitus: home insulin long acting and short acting orders continued ISS (6) Frequent falls: as above PT/OT (7) Chronic constipation: as above (8) Anemia: chronic, at baseline (9) Hyperlipidemia: home pravastatin continued History of Present Illness Primary Care Provider: Suad Vasquez MD Chief Complaint: 83 y/o M Hx DM II, HLD, impaired gait, moderate dementia, anemia, chronic Bailey with recurrent UTIs and resultant weakness. 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 No fevers or rigors reported. The pt lives with his elderly who has difficulty caring for him when he becomes ill and cannot assist her. Last admitted 10/13/18 - 10/19/18 for similar complaints, then went to SNF for rehab, has been with home health since. Initial labs are notable for a + UA. PMH 1) Chronic Bailey, recurrent UTIs with encephalopathy 2) HLD 3) HTN - presently untreated 4) Moderate dementia 5) Impaired gait and frequent falls 6) Peripheral neuropathy 7) Dm II 8) Iron-deficient anemia - baseline Hb 10-12 9) T12 ompression fracture Surgical: Denies Social: No smoking or drinking history - cared for by his Family: Non contributory due to pt age Allergies Allergy/AdvReac Type Severity Reaction Status Date / Time No Known Allergies Allergy NONE Verified 06/27/18 14:02 Home Medications Home Medications Medication Instructions Recorded Confirmed Type aspirin 81 mg PO DAILY 06/27/18 12/21/18 History calcium carbonate [Tums] 200 mg PO UD PRN 06/27/18 12/21/18 History cholecalciferol (vitamin D3) 1,000 unit PO DAILY 06/27/18 12/21/18 History [Vitamin D3] insulin aspart U-100 0 units SUBCUT TIDM 06/27/18 12/21/18 History pravastatin 20 mg PO DAILY 06/27/18 12/21/18 History sertraline 25 mg PO DAILY 06/27/18 12/21/18 History acetaminophen [Tylenol Extra 1,000 mg PO BID PRN 10/13/18 12/21/18 History Strength] insulin glargine 20 unit SUBCUT QAM 12/21/18 12/21/18 History sennosides-docusate sodium [Senna 1 tab PO QAM PRN 12/21/18 12/21/18 History with Docusate Sodium] Past Med/Surg History Medical History Reflux esophagitis Urinary retention (Resolved) Anemia (Chronic) Chronic constipation (Chronic) Type 2 diabetes mellitus (Chronic) Benign prostate hyperplasia (Chronic) Hyperlipidemia (Chronic) Hypertension (Chronic) Frequent falls (Chronic) Peripheral neuropathy (Chronic) Diverticulosis Hypokalemia Metabolic encephalopathy Sepsis Surgical History History of tonsillectomy Family History Other Benign essential HTN Social History Preferred Language: Hebrew Communication Ability: confusion Trim Mechanic Required: No Beliefs That Will Affect Care: None marital status: Current Living Situation: Spouse Other Information That Helps Us Care for You: No Feels Safe at Home: Yes Safety Concerns: Feels Safe At This Time Smoking Status: Never smoker Hx Alcohol Use: No Hx Substance Use: No Review of Systems All systems reviewed & are unremarkable except as noted in HPI & below Physical Exam Vital Signs (Past 24 Hours): Last Vital Signs Temp 36.9 C 12/21/18 14:23 Pulse 85 12/21/18 20:37 Resp 18 12/21/18 20:37 BP 147/86 H 12/21/18 20:37 Pulse Ox 95 12/21/18 20:37 Physical Exam: Vitals noted as above and within normal limits with the exception of hypertension. GENERAL: Awake, alert to person, place, and NOT to time, nontoxic-appearing, in no distress HENT: Normocephalic, atraumatic. . Mucus membranes appear moist. EYES: Normal conjunctiva. Sclera non-icteric. EOMI. NECK: Supple. Full range of motion. No JVD RESPIRATORY: Clear to auscultation. Normal work of breathing. CARDIAC: Regular rate, normal rhythm. Extremities warm and well perfused, 2+ radial pulses bilaterally; 2+ posterior tibialis pulses bilaterally. ABDOMEN: Soft, non-distended. No tenderness to palpation in all four quadrants. No rebound or guarding. No masses. Bowel sounds are normal. LOWER EXTREMITIES: Inspection of calves reveal equal size bilaterally. They are non-tender. No edema. No discoloration. +b/l calf atrophy. NEURO: No focal gross focal motor deficits noted. Sensation in tact. CN II-XII grossly in tact. SKIN: Rash not present. No jaundice noted. Significant lesions not present. PSYCH: Appropriate mood and affect. Cooperative. +confabulates. Exam as done by Josefa Whipple MD, Instrument Maker. Results & Data Laboratory Results 12/21/18 12/21/18 12/21/18 Range/Units 16:00 16:00 16:00 WBC (4.8-10.8) K/uL RBC (4.7-6.1) M/uL Hgb (14.0-18.0) g/dL Hct (42-52) % MCV (80-100) fL MCH (25-34) pg MCHC (32-36) g/dL RDW Std Deviation (36.4-46.3) fL RDW Coeff of Shauna (11.5-14.5) % Plt Count (130-400) K/uL MPV (7.4-10.4) fL Immature Gran % (Auto) % Neut % (Auto) % Lymph % (Auto) % [place] % (Auto) % Eos % (Auto) % Baso % (Auto) % Immature Gran # (Auto) (0.00-0.02) K/uL Neut # (Auto) (1.4-6.5) K/uL Lymph # (Auto) (1.2-3.4) K/uL [place] # (Auto) (0.11-0.59) K/uL Eos # (Auto) (0-0.5) K/uL Baso # (Auto) (0-0.2) K/uL PT 11.0 (9.0-12.0) Seconds INR 1.1 (0.9-1.1) Sodium 135 L (136-145) mmol/L Potassium 4.1 (3.5-5.1) mmol/L Chloride 104 (98-107) mmol/L Carbon Dioxide 28 (21-32) mmol/L Anion Gap 3.0 (3-11) BUN 20 H (7-18) mg/dl Creatinine 1.09 (0.6-1.4) mg/dl Est Cr Clr Drug Dosing Not Reportable Est GFR ( Amer) 72.9 Est GFR (Non-Af Amer) 62.9 BUN/Creatinine Ratio 18.4 (10-20) Glucose 156 H (70-99) mg/dl Calcium 8.0 L (8.5-10.1) mg/dl Phosphorus 3.0 (2.5-4.9) mg/dl Magnesium 2.2 (1.8-2.4) mg/dl Total Bilirubin 0.4 (0.2-1) mg/dl AST 11 L (15-37) U/L ALT 14 (12-78) U/L Alkaline Phosphatase 81 (45-117) U/L Troponin I < 0.015 (0-0.045) ng/ml Total Protein 7.1 (6.4-8.2) gm/dl Albumin 3.0 L (3.4-5.0) gm/dl Globulin 4.1 H (2.5-4.0) gm/dl Albumin/Globulin Ratio 0.7 L (0.9-2) Lipase 54 L (73-393) U/L Urine Color Yellow Urine Appearance Cloudy H (Clear) Urine pH 6.5 (4.5-7.5) Ur Specific [place] 1.022 (1.000-1.030) Urine Protein Negative (Negative) Urine Glucose (UA) Negative (Negative) Urine Ketones Negative (Negative) Urine Blood Negative (Negative) Urine Nitrite Positive H (Negative) Urine Bilirubin Negative (Negative) Urine Urobilinogen Negative (Negative) Ur Leukocyte Esterase 3+ H (Negative) Urine WBC (Auto) >30 H (0-5) /hpf Urine RBC (Auto) 0-4 (0-4) /hpf U Hyaline Cast (Auto) 10-30 H (0-5) /lpf U Epithel Cells (Auto) 5-10 H (0-5) /lpf Urine Bacteria (Auto) Negative (Negative) 12/21/18 Range/Units 16:00 WBC 4.72 L (4.8-10.8) K/uL RBC 3.22 L (4.7-6.1) M/uL Hgb 10.3 L (14.0-18.0) g/dL Hct 30.8 L (42-52) % MCV 95.7 (80-100) fL MCH 32.0 (25-34) pg MCHC 33.4 (32-36) g/dL RDW Std Deviation 54.5 H (36.4-46.3) fL RDW Coeff of Shauna 15.5 H (11.5-14.5) % Plt Count 145 (130-400) K/uL MPV 10.0 (7.4-10.4) fL Immature Gran % (Auto) 0.2 % Neut % (Auto) 63.0 % Lymph % (Auto) 23.5 % [place] % (Auto) 9.5 % Eos % (Auto) 3.4 % Baso % (Auto) 0.4 % Immature Gran # (Auto) 0.01 (0.00-0.02) K/uL Neut # (Auto) 2.97 (1.4-6.5) K/uL Lymph # (Auto) 1.11 L (1.2-3.4) K/uL [place] # (Auto) 0.45 (0.11-0.59) K/uL Eos # (Auto) 0.16 (0-0.5) K/uL Baso # (Auto) 0.02 (0-0.2) K/uL PT (9.0-12.0) Seconds INR (0.9-1.1) Sodium (136-145) mmol/L Potassium (3.5-5.1) mmol/L Chloride (98-107) mmol/L Carbon Dioxide (21-32) mmol/L Anion Gap (3-11) BUN (7-18) mg/dl Creatinine (0.6-1.4) mg/dl Est Cr Clr Drug Dosing Est GFR ( Amer) Est GFR (Non-Af Amer) BUN/Creatinine Ratio (10-20) Glucose (70-99) mg/dl Calcium (8.5-10.1) mg/dl Phosphorus (2.5-4.9) mg/dl Magnesium (1.8-2.4) mg/dl Total Bilirubin (0.2-1) mg/dl AST (15-37) U/L ALT (12-78) U/L Alkaline Phosphatase (45-117) U/L Troponin I (0-0.045) ng/ml Total Protein (6.4-8.2) gm/dl Albumin (3.4-5.0) gm/dl Globulin (2.5-4.0) gm/dl Albumin/Globulin Ratio (0.9-2) Lipase (73-393) U/L Urine Color Urine Appearance (Clear) Urine pH (4.5-7.5) Ur Specific [place] (1.000-1.030) Urine Protein (Negative) Urine Glucose (UA) (Negative) Urine Ketones (Negative) Urine Blood (Negative) Urine Nitrite (Negative) Urine Bilirubin (Negative) Urine Urobilinogen (Negative) Ur Leukocyte Esterase (Negative) Urine WBC (Auto) (0-5) /hpf Urine RBC (Auto) (0-4) /hpf U Hyaline Cast (Auto) (0-5) /lpf U Epithel Cells (Auto) (0-5) /lpf Urine Bacteria (Auto) (Negative) Diagnostic Findings abd/pelvis ct: large stool ball 9.2 cm, rectal wall thickening, similar to prior study. --> mass effect on bladder. +Progressive fullness within b/l renal collecting systems up to UVJ. cxr: no acute findings, mod hiatal hernia head ct: neg for fractures. Medications Administered NSS 1L bolus, rocephin. Dulcolax PO and MI. ECG Additional Comments: Normal sinus rhythm, Left axis deviation, Premature atrial complexes are no longer present. Rate 63, QTc 450. Code Status & VTE Plan Code Status DNR when d/w pt, but and POA state his wishes likely more aligned with FULL. Will order FULL code at this time given pt's cognitive issues and questionable capacity. Supervising Physician Co-Signing Physician Notes Patient seen and examined, chart reviewed, case discussed with Dr. Whipple and I agree with her assessment and plan as documented above. Briefly, patient is an 83yo male presenting with weakness and difficulty ambulating with falls x 3 . Patient found to have a large stool ball with mass effect on the bladder as well as a UTI, with chronic indwelling Bailey. On physical exam he is afebrile, hemodynamically stable with mild hypertension. He is pleasantly demented, oriented x 2. Skin: intact, no rash HEENT: NC/AT, PERRL, MMM, neck supple Heart: +S1/S2, regular, no m/r/g Lungs: CTA, no rales/rhonchi/wheezes Abd: +BS, soft, NT/ND, no masses Ext: no edema, 2+ pulses Neuro: nonfocal Labs and images reviewed. +UA. CT with 9.2cm stool ball, rectal wall thickening, mass effect on bladder Assessment/Plan: -Observation to medical floor -Ceftriaxone for complicated UTI, follow culture results, sensitivities/specificities -Aggressive bowel regimen, ?possibility of bowel training/rehab in setting of chronic constipation -PT, OT assessment. CM assistance with placement -Remainder of plan as above Resident Activity Tracking Resident Involvement: Resident Care Provided Care Provided: Adult Hospital Medicine (1) UTI (urinary tract infection) Hematuria presence: without hematuria Urinary tract infection type: site unspecified Qualified Code(s): N39.0 - Urinary tract infection, site not specified (2) Type 2 diabetes mellitus Diabetes mellitus complication status: with unspecified complications Diabetes mellitus termite treater helper insulin use: with termite treater helper use Qualified Code(s): E11.8 - Type 2 diabetes mellitus with unspecified complications; Z79.4 - Long te rm (current) use of insulin (3) Anemia Anemia type: iron deficiency Iron deficiency anemia type: inadequate dietary iron intake Qualified Code(s): D50.8 - Other iron deficiency anemias (4) Hyperlipidemia Hyperlipidemia type: unspecified Qualified Code(s): E78.5 - Hyperlipidemia, unspecified
[2018-12-21] MEDS ORDERED: ALUMINUM/MAGNESIUM SUSP 30 ML UDC PO PRN (23:23)
[2018-12-21] MEDS ORDERED: MAGNESIUM HYDROXIDE SUSP 30 ML UDC PO PRN (23:23)
[2018-12-21] MEDS ORDERED: ONDANSETRON INJ 2 MG/ML 2 ML VIAL IV PRN (23:23)
[2018-12-21] MEDS ORDERED: CALCIUM CARBONATE 500 MG CHEWABLE TAB PO PRN (23:23)
[2018-12-22] MEDS: SODIUM CHLORIDE 0.9% 1000ML 1,000 ML IV SCH ×2 (00:42→13:33)
[2018-12-22] MEDS: ENOXAPARIN INJ 40 MG/0.4 ML SYR SQ SCH (05:52)
[2018-12-22 07:02] LABS: Basophils # (auto) 0.03 K/uL (0-0.2); Basophils % (auto) 0.6 %; Eosinophils % (auto) 4.1 %; Hematocrit (blood only) 30.1 % (42-52); Hemoglobin 10.3 g/dL (14.0-18.0); Immature Granulocytes # (auto) 0.01 K/uL (0.00-0.02); Immature Granulocytes % (auto) 0.2 %; Lymphocytes # (auto) 0.99 K/uL (1.2-3.4); Lymphocytes % (auto) 20.4 %; Mean Corpuscular Hgb Conc 34.2 g/dL (32-36); Mean Corpuscular Volume 95.9 fL (80-100); Mean Platelet Volume 10.5 fL (7.4-10.4); Monocytes # (auto) 0.39 K/uL (0.11-0.59); Neutrophils # (auto) 3.24 K/uL (1.4-6.5); Neutrophils % (auto) 66.7 %; Platelet Count 161 K/uL (130-400); RDW Coefficient of Variation 15.6 % (11.5-14.5); RDW Standard Deviation 54.7 fL (36.4-46.3); Red Blood Count 3.14 M/uL (4.7-6.1); White Blood Count 4.86 K/uL (4.8-10.8)
[2018-12-22 07:43] LABS: BUN Creatinine Ratio 19.1 (10-20); Calcium 7.9 mg/dl (8.5-10.1); Creatinine Clr Calc Pharmacy 55.1 ml/min; Est GFR (African American) 91.9; Est GFR (Non-African American) 79.3; Potassium 3.4 mmol/L (3.5-5.1)
[2018-12-22] MEDS ORDERED: POLYETHYLENE (MIRALAX) 17 GM PACK PO SCH (09:00)
[2018-12-22] MEDS: BISACODYL 5 MG TABEC PO SCH (09:58)
[2018-12-22] MEDS: PRAVASTATIN SOD 20 MG TAB PO SCH (09:58)
[2018-12-22] MEDS: POTASSIUM CHLORIDE 10 MEQ TABCR PO SCH (09:58)
[2018-12-22] MEDS: SERTRALINE HCL 50 MG TABLET PO SCH (09:58)
[2018-12-22] MEDS: DOCUSATE SODIUM/SENNA 50/8.6MG TAB PO SCH (09:58)
[2018-12-22] MEDS: CHOLECALCIFEROL 1,000 UNITS TAB PO SCH (09:58)
[2018-12-22] MEDS: ASPIRIN 81 MG ECTAB PO SCH (09:58)
[2018-12-22] MEDS: INSULIN GLARGINE SOLOSTAR 100 UNITS/ML 3 ML PEN SQ SCH (09:59)
[2018-12-22] MEDS: INSULIN ASPART 100 UNITS/ML 3 ML PEN SQ SCH ×3 (10:00→18:08)
--- NOTE | 2018-12-22 10:02 | Ultrasound Report ---
ULTRASOUND KIDNEYS AND BLADDER CLINICAL HISTORY: Fullness of the renal collecting system seen by CT.. COMPARISON STUDY: Abdominal CT dated 12/21/2018. TECHNIQUE: Real-time, grayscale, and color flow sonography of the kidneys and bladder is performed. I mages are reviewed in the transverse and longitudinal planes. FINDINGS: Kidneys: The kidneys demonstrate cortical atrophy. The right kidney measures 10.7 cm and the left kid elham measures 11.6 cm. There is no hydronephrosis. There is mild. The renal collecting systems, simil ar to yesterday. No shadowing renal calculi are identified. Scattered subcentimeter cysts are noted b ilaterally. There is no sonographic evidence of contour deforming renal mass lesion. No perinephric f luid is identified. Bladder: The bladder is decompressed and a Bailey catheter and not well evaluated. Bladder wall thicke chilo is noted. Ureteral jets were not seen. Abdominal aorta: There is advanced atherosclerotic calcification and ectasia of the abdominal aorta. This measures up to 2.6 cm in diameter. IMPRESSION: 1. The kidneys demonstrate cortical atrophy and are without hydronephrosis. 2. Fullness of the renal collecting system bilaterally is unchanged and was better characterized on 's CT scan. 3. The bladder is decompressed around a Bailey catheter and not well evaluated. Wall thickening is not ed. Electronically signed by: Raudel Perea M.D. 12/22/2018 10:01 AM
[2018-12-22] MEDS: POLYETHYLENE (MIRALAX) 17 GM PACK PO SCH ×3 (14:11→20:52)
--- NOTE | 2018-12-22 16:12 | Family Medicine Progress Note ---
Date of Service December 22, 2018 Assessment & Plan (1) UTI (urinary tract infection): 83-year-old male with history of dementia, type 2 diabetes, hyperlipidemia BPH and chronic catheterization with recurrent UTI presents with weakness and falls. He was admitted and treated for metabolic encephalopathy in the setting of recurrent UTI. Metabolic encephalopathy secondary to recurrent UTI versus constipation Patient has baseline dementia-- mental status may be worsening secondary to infection versus acute constipation PT and OT to evaluate the patient, according to family patient's mental status has been progressively worseningthey are not comfortable with him going home Dcing planning for [facility] or [facility], will continue to follow with case management Probable UTI in the setting of chronic catheterization Continue to treat with Rocephin, Bailey catheter changed in the ED Patient has been afebrile, normal white count urine cultures pending. Suspicious that the mental status changes more likely secondary to constipation The patient may be chronically colonized Acute on chronic constipation Stool ball shown to have mass-effect on bladder Continue every 4 hour MiraLAX, Dulcolax and suppository Type 2 diabetes Continue insulin, statin, aspirin Depression Continue Zoloft DVT prophylaxis Lovenox CODE STATUS Full code Disposition; patient currently be treated for UTI/constipation. Discharge planning for outpatient senior living. (2) Chronic indwelling Bailey catheter: (3) Generalized weakness: (4) Reflux esophagitis: (5) Anemia: (6) Urinary retention: (7) Chronic constipation: (8) Type 2 diabetes mellitus: (9) Benign prostate hyperplasia: (10) Hyperlipidemia: (11) Hypertension: (12) Frequent falls: (13) Peripheral neuropathy: Supervising Physician Co-Signing Physician Notes Resident Physician Supervision Note: I independently interviewed and examined the patient and verified the barakat history and physical, reviewed labs and image studies, discussed the case with the resident Dr. Whipple and agree with the findings and care plan. Subjective 83-year-old male with history of dementia, type 2 diabetes, hyperlipidemia and chronic catheterization with recurrent UTI presents with weakness and falls. This morning the patient is alert and oriented to person and place. He is sometimes evasive with questioning. On return during attending rounds, the patient did not recognize me from before. Review of systems Patient denies fevers, chills, night sweats, abdominal pain, nausea/vomiting/diarrhea. Patient denies chest pain, palpitations, shortness of breath. Physical Exam Vital Signs (Past 24 Hours): Last Vital Signs Temp 36.3 C L 12/22/18 11:38 Pulse 67 12/22/18 11:38 Resp 18 12/22/18 11:38 BP 162/76 H 12/22/18 11:38 Pulse Ox 95 12/22/18 11:38 Constitutional: WD/WN, vitals as above Eyes: PERRL, conjunctivae normal, anicteric sclerae ENMT: external ear and nose normal, oropharynx normal Neck: trachea midline, no thyromegaly Respiratory: normal respiratory effort, lungs clear to auscultation Cardiovascular: RRR, no murmur, no edema Gastrointestinal (Abdomen): normal bowel sounds, soft, nontender, no hepatosplenomegaly Musculoskeletal: no cyanosis or clubbing, extremities motor strength 5/5 Skin: no rashes, warm and dry Psychiatric: Orientation: alert, oriented to person and oriented to place; + not oriented to time Lymphatic: no cervical or axillary lymphadenopathy Results & Data Laboratory Results Laboratory Last Values WBC 4.86 K/uL (4.8-10.8) 12/22/18 06:03 RBC 3.14 M/uL (4.7-6.1) L 12/22/18 06:03 Hgb 10.3 g/dL (14.0-18.0) L 12/22/18 06:03 Hct 30.1 % (42-52) L 12/22/18 06:03 MCV 95.9 fL (80-100) 12/22/18 06:03 MCH 32.8 pg (25-34) 12/22/18 06:03 MCHC 34.2 g/dL (32-36) 12/22/18 06:03 RDW Std Deviation 54.7 fL (36.4-46.3) H 12/22/18 06:03 RDW Coeff of Shauna 15.6 % (11.5-14.5) H 12/22/18 06:03 Plt Count 161 K/uL (130-400) 12/22/18 06:03 MPV 10.5 fL (7.4-10.4) H 12/22/18 06:03 Immature Gran % (Auto) 0.2 % 12/22/18 06:03 Neut % (Auto) 66.7 % 12/22/18 06:03 Lymph % (Auto) 20.4 % 12/22/18 06:03 [place] % (Auto) 8.0 % 12/22/18 06:03 Eos % (Auto) 4.1 % 12/22/18 06:03 Baso % (Auto) 0.6 % 12/22/18 06:03 Immature Gran # (Auto) 0.01 K/uL (0.00-0.02) 12/22/18 06:03 Neut # (Auto) 3.24 K/uL (1.4-6.5) 12/22/18 06:03 Lymph # (Auto) 0.99 K/uL (1.2-3.4) L 12/22/18 06:03 [place] # (Auto) 0.39 K/uL (0.11-0.59) 12/22/18 06:03 Eos # (Auto) 0.20 K/uL (0-0.5) 12/22/18 06:03 Baso # (Auto) 0.03 K/uL (0-0.2) 12/22/18 06:03 PT 11.0 Seconds (9.0-12.0) 12/21/18 16:00 INR 1.1 (0.9-1.1) 12/21/18 16:00 Sodium 139 mmol/L (136-145) 12/22/18 06:03 Potassium 3.4 mmol/L (3.5-5.1) L D 12/22/18 06:03 Chloride 108 mmol/L (98-107) H 12/22/18 06:03 Carbon Dioxide 26 mmol/L (21-32) 12/22/18 06:03 Anion Gap 5.0 (3-11) 12/22/18 06:03 BUN 17 mg/dl (7-18) 12/22/18 06:03 Creatinine 0.90 mg/dl (0.6-1.4) 12/22/18 06:03 Est Cr Clr Drug Dosing 55.1 ml/min 12/22/18 06:03 Est GFR ( Amer) 91.9 12/22/18 06:03 Est GFR (Non-Af Amer) 79.3 12/22/18 06:03 BUN/Creatinine Ratio 19.1 (10-20) 12/22/18 06:03 Glucose 54 mg/dl (70-99) L 12/22/18 06:03 POC Glucose 186 (70-99) H 12/22/18 11:59 Calcium 7.9 mg/dl (8.5-10.1) L 12/22/18 06:03 Phosphorus 3.0 mg/dl (2.5-4.9) 12/21/18 16:00 Magnesium 2.2 mg/dl (1.8-2.4) 12/21/18 16:00 Total Bilirubin 0.4 mg/dl (0.2-1) 12/21/18 16:00 AST 11 U/L (15-37) L 12/21/18 16:00 ALT 14 U/L (12-78) 12/21/18 16:00 Alkaline Phosphatase 81 U/L (45-117) 12/21/18 16:00 Troponin I < 0.015 ng/ml (0-0.045) 12/21/18 16:00 Total Protein 7.1 gm/dl (6.4-8.2) 12/21/18 16:00 Albumin 3.0 gm/dl (3.4-5.0) L 12/21/18 16:00 Globulin 4.1 gm/dl (2.5-4.0) H 12/21/18 16:00 Albumin/Globulin Ratio 0.7 (0.9-2) L 12/21/18 16:00 Lipase 54 U/L (73-393) L 12/21/18 16:00 Urine Color Yellow 12/21/18 16:00 Urine Appearance Cloudy (Clear) H 12/21/18 16:00 Urine pH 6.5 (4.5-7.5) 12/21/18 16:00 Ur Specific [place] 1.022 (1.000-1.030) 12/21/18 16:00 Urine Protein Negative (Negative) 12/21/18 16:00 Urine Glucose (UA) Negative (Negative) 12/21/18 16:00 Urine Ketones Negative (Negative) 12/21/18 16:00 Urine Blood Negative (Negative) 12/21/18 16:00 Urine Nitrite Positive (Negative) H 12/21/18 16:00 Urine Bilirubin Negative (Negative) 12/21/18 16:00 Urine Urobilinogen Negative (Negative) 12/21/18 16:00 Ur Leukocyte Esterase 3+ (Negative) H 12/21/18 16:00 Urine WBC (Auto) >30 /hpf (0-5) H 12/21/18 16:00 Urine RBC (Auto) 0-4 /hpf (0-4) 12/21/18 16:00 U Hyaline Cast (Auto) 10-30 /lpf (0-5) H 12/21/18 16:00 U Epithel Cells (Auto) 5-10 /lpf (0-5) H 12/21/18 16:00 Urine Bacteria (Auto) Negative (Negative) 12/21/18 16:00 Resident Activity Tracking Resident Involvement: Resident Care Provided Care Provided: Adult Hospital Medicine (1) UTI (urinary tract infection) Hematuria presence: without hematuria Urinary tract infection type: site unspecified Qualified Code(s): N39.0 - Urinary tract infection, site not specified (2) Benign prostate hyperplasia Lower urinary tract symptom detail: unspecified Lower urinary tract symptom presence: symptoms present Qualified Code(s): N40.1 - Benign prostatic hyperplasia with lower urinary tract symptoms (3) Type 2 diabetes mellitus Diabetes mellitus complication status: with unspecified complications Diabetes mellitus halfway insulin use: with halfway use Qualified Code(s): E11.8 - Type 2 diabetes mellitus with unspecified complications; Z79.4 - termination clerk (current) use of insulin (4) Anemia Anemia type: iron deficiency Iron deficiency anemia type: inadequate dietary iron intake Qualified Code(s): D50.8 - Other iron deficiency anemias (5) Hyperlipidemia Hyperlipidemia type: unspecified Qualified Code(s): E78.5 - Hyperlipidemia, unspecified (6) Hypertension Hypertension type: essential hypertension Qualified Code(s): I10 - Essential (primary) hypertension
[2018-12-22] MEDS: ACETAMINOPHEN 500 MG TAB PO PRN (17:50)
[2018-12-22] MEDS: cefTRIAXone SODIUM 1,000 MG in DEXTROSE 5% 50 ML IV SCH (20:50)
[2018-12-23] MEDS: SODIUM CHLORIDE 0.9% 1000ML 1,000 ML IV SCH (02:12)
[2018-12-23] MEDS: POLYETHYLENE (MIRALAX) 17 GM PACK PO SCH ×3 (02:22→20:34)
[2018-12-23] MEDS ORDERED: GLUCAGON FOR INJ 1 MG VIAL IM PRN (03:45)
[2018-12-23] MEDS ORDERED: GLUCOSE 40% GEL 15 GM TUBE PO PRN (03:45)
[2018-12-23] MEDS ORDERED: CARBOHYDRATES FOR HYPOGLYCEMIA PO PRN (03:45)
[2018-12-23] MEDS ORDERED: GLUCOSE 10 TABS/TUBE PO PRN (03:45)
[2018-12-23] MEDS ORDERED: DEXTROSE 50% 50 ML SYRINGE IV PRN (03:45)
[2018-12-23] MEDS: ENOXAPARIN INJ 40 MG/0.4 ML SYR SQ SCH (05:28)
[2018-12-23 08:15] LABS: Basophils # (auto) 0.04 K/uL (0-0.2); Basophils % (auto) 1.1 %; Eosinophils # (auto) 0.15 K/uL (0-0.5); Lymphocytes % (auto) 29.1 %; Mean Corpuscular Hgb Conc 33.3 g/dL (32-36); Mean Corpuscular Volume 95.2 fL (80-100); Mean Platelet Volume 10.5 fL (7.4-10.4); Monocytes # (auto) 0.39 K/uL (0.11-0.59); Monocytes % (auto) 10.3 %; Neutrophils % (auto) 55.5 %; Platelet Count 156 K/uL (130-400); RDW Coefficient of Variation 15.3 % (11.5-14.5); RDW Standard Deviation 53.4 fL (36.4-46.3); Red Blood Count 3.15 M/uL (4.7-6.1); White Blood Count 3.78 K/uL (4.8-10.8)
[2018-12-23 08:59] LABS: BUN Creatinine Ratio 15.9 (10-20); Calcium 8.3 mg/dl (8.5-10.1); Est GFR (African American) 96.9; Est GFR (Non-African American) 83.6; Magnesium 2.1 mg/dl (1.8-2.4); Potassium 4.2 mmol/L (3.5-5.1)
[2018-12-23] MEDS ORDERED: POTASSIUM CHLORIDE 10 MEQ TABCR PO SCH (09:00)
[2018-12-23] MEDS: SERTRALINE HCL 50 MG TABLET PO SCH (09:31)
[2018-12-23] MEDS: POTASSIUM CHLORIDE 10 MEQ TABCR PO SCH (09:31)
[2018-12-23] MEDS: DOCUSATE SODIUM/SENNA 50/8.6MG TAB PO SCH (09:32)
[2018-12-23] MEDS: INSULIN GLARGINE SOLOSTAR 100 UNITS/ML 3 ML PEN SQ SCH (09:34)
[2018-12-23] MEDS: INSULIN ASPART 100 UNITS/ML 3 ML PEN SQ SCH ×3 (09:35→18:11)
[2018-12-23] MEDS: BISACODYL 5 MG TABEC PO SCH (09:37)
[2018-12-23] MEDS: ASPIRIN 81 MG ECTAB PO SCH (10:27)
[2018-12-23] MEDS: PRAVASTATIN SOD 20 MG TAB PO SCH (10:27)
[2018-12-23] MEDS: CHOLECALCIFEROL 1,000 UNITS TAB PO SCH (10:27)
--- NOTE | 2018-12-23 14:42 | Family Medicine Progress Note ---
Date of Service December 23, 2018 Assessment & Plan (1) Chronic indwelling Heredia catheter: 83-year-old male with history of dementia, type 2 diabetes, hyperlipidemia BPH and chronic catheterization with recurrent UTI presents with weakness and falls. He was admitted and treated for metabolic encephalopathy in the setting of recurrent UTI. Metabolic encephalopathy secondary to ? UTI/constipation Patient has baseline dementia - supportive care. Probable UTI in the setting of chronic heredia catheterization Cultures today came back with only pinpoint growthdecided to discontinue Rocephin -follow final results. Chronic heredia After reviewing outpatient urology notes, they recommended that the patient may have to be started on methenamine, 1 g twice daily for urinary tract infection prevention Urology notes also describe needing permanent catheterization considering persistent urinary retention. We will start methenamine in the hospital. Acute on chronic constipation Stool ball shown to have mass-effect on bladder Continue bowel regimen, MiraLAX, Dulcolax and suppository Type 2 diabetes Continue insulin, statin, aspirin Depression Continue Zoloft DVT prophylaxis Lovenox CODE STATUS Full code Disposition; PT and OT to evaluate the patient, according to family patient's mental status has been progressively worsening Dcing planning for [facility] or [facility], will continue to follow with case management (2) Chronic constipation: (3) Fecal impaction in rectum: Supervising Physician Co-Signing Physician Notes Resident Physician Supervision Note: I independently interviewed and examined the patient and verified the barakat history and physical, reviewed labs and image studies, discussed the case with the resident Dr. Whipple and agree with the findings and care plan. Subjective 83-year-old male with history of dementia, type 2 diabetes, hyperlipidemia and chronic catheterization with recurrent UTI presents with weakness and falls. Patient is alert to person, but not place or time. He is confabulating. He denies any acute complaints at this time. Review of systems Patient denies fevers, chills, night sweats, abdominal pain, nausea/vomiting/diarrhea. Patient denies chest pain, palpitations, shortness of breath. Physical Exam Vital Signs (Past 24 Hours): Last Vital Signs Temp 36.5 C 12/23/18 08:00 Pulse 76 12/23/18 08:00 Resp 16 12/23/18 08:00 BP 170/79 H 12/23/18 08:00 Pulse Ox 97 12/23/18 08:00 Constitutional: WD/WN, vitals as above Eyes: PERRL, conjunctivae normal, anicteric sclerae ENMT: external ear and nose normal, oropharynx normal Neck: trachea midline, no thyromegaly Respiratory: normal respiratory effort, lungs clear to auscultation Cardiovascular: RRR, no murmur, no edema Gastrointestinal (Abdomen): normal bowel sounds, soft, nontender, no hepatosplenomegaly Musculoskeletal: no cyanosis or clubbing, extremities motor strength 5/5 Skin: no rashes, warm and dry Psychiatric: Orientation: alert, oriented to person and oriented to place; + not oriented to time Lymphatic: no cervical or axillary lymphadenopathy Results & Data Laboratory Results Laboratory Last Values WBC 3.78 K/uL (4.8-10.8) L 12/23/18 07:51 RBC 3.15 M/uL (4.7-6.1) L 12/23/18 07:51 Hgb 10.0 g/dL (14.0-18.0) L 12/23/18 07:51 Hct 30.0 % (42-52) L 12/23/18 07:51 MCV 95.2 fL (80-100) 12/23/18 07:51 MCH 31.7 pg (25-34) 12/23/18 07:51 MCHC 33.3 g/dL (32-36) 12/23/18 07:51 RDW Std Deviation 53.4 fL (36.4-46.3) H 12/23/18 07:51 RDW Coeff of Shauna 15.3 % (11.5-14.5) H 12/23/18 07:51 Plt Count 156 K/uL (130-400) 12/23/18 07:51 MPV 10.5 fL (7.4-10.4) H 12/23/18 07:51 Immature Gran % (Auto) 0.0 % 12/23/18 07:51 Neut % (Auto) 55.5 % 12/23/18 07:51 Lymph % (Auto) 29.1 % 12/23/18 07:51 [place] % (Auto) 10.3 % 12/23/18 07:51 Eos % (Auto) 4.0 % 12/23/18 07:51 Baso % (Auto) 1.1 % 12/23/18 07:51 Immature Gran # (Auto) 0.00 K/uL (0.00-0.02) 12/23/18 07:51 Neut # (Auto) 2.10 K/uL (1.4-6.5) 12/23/18 07:51 Lymph # (Auto) 1.10 K/uL (1.2-3.4) L 12/23/18 07:51 [place] # (Auto) 0.39 K/uL (0.11-0.59) 12/23/18 07:51 Eos # (Auto) 0.15 K/uL (0-0.5) 12/23/18 07:51 Baso # (Auto) 0.04 K/uL (0-0.2) 12/23/18 07:51 PT 11.0 Seconds (9.0-12.0) 12/21/18 16:00 INR 1.1 (0.9-1.1) 12/21/18 16:00 Sodium 139 mmol/L (136-145) 12/23/18 07:51 Potassium 4.2 mmol/L (3.5-5.1) D 12/23/18 07:51 Chloride 108 mmol/L (98-107) H 12/23/18 07:51 Carbon Dioxide 25 mmol/L (21-32) 12/23/18 07:51 Anion Gap 6.0 (3-11) 12/23/18 07:51 BUN 13 mg/dl (7-18) 12/23/18 07:51 Creatinine 0.79 mg/dl (0.6-1.4) 12/23/18 07:51 Est Cr Clr Drug Dosing 63.0 ml/min 12/23/18 07:51 Est GFR ( Amer) 96.9 12/23/18 07:51 Est GFR (Non-Af Amer) 83.6 12/23/18 07:51 BUN/Creatinine Ratio 15.9 (10-20) 12/23/18 07:51 Glucose 100 mg/dl (70-99) H 12/23/18 07:51 POC Glucose 211 (70-99) H 12/23/18 11:20 Calcium 8.3 mg/dl (8.5-10.1) L 12/23/18 07:51 Phosphorus 3.0 mg/dl (2.5-4.9) 12/21/18 16:00 Magnesium 2.1 mg/dl (1.8-2.4) 12/23/18 07:51 Total Bilirubin 0.4 mg/dl (0.2-1) 12/21/18 16:00 AST 11 U/L (15-37) L 12/21/18 16:00 ALT 14 U/L (12-78) 12/21/18 16:00 Alkaline Phosphatase 81 U/L (45-117) 12/21/18 16:00 Troponin I < 0.015 ng/ml (0-0.045) 12/21/18 16:00 Total Protein 7.1 gm/dl (6.4-8.2) 12/21/18 16:00 Albumin 3.0 gm/dl (3.4-5.0) L 12/21/18 16:00 Globulin 4.1 gm/dl (2.5-4.0) H 12/21/18 16:00 Albumin/Globulin Ratio 0.7 (0.9-2) L 12/21/18 16:00 Lipase 54 U/L (73-393) L 12/21/18 16:00 Urine Color Yellow 12/21/18 16:00 Urine Appearance Cloudy (Clear) H 12/21/18 16:00 Urine pH 6.5 (4.5-7.5) 12/21/18 16:00 Ur Specific [place] 1.022 (1.000-1.030) 12/21/18 16:00 Urine Protein Negative (Negative) 12/21/18 16:00 Urine Glucose (UA) Negative (Negative) 12/21/18 16:00 Urine Ketones Negative (Negative) 12/21/18 16:00 Urine Blood Negative (Negative) 12/21/18 16:00 Urine Nitrite Positive (Negative) H 12/21/18 16:00 Urine Bilirubin Negative (Negative) 12/21/18 16:00 Urine Urobilinogen Negative (Negative) 12/21/18 16:00 Ur Leukocyte Esterase 3+ (Negative) H 12/21/18 16:00 Urine WBC (Auto) >30 /hpf (0-5) H 12/21/18 16:00 Urine RBC (Auto) 0-4 /hpf (0-4) 12/21/18 16:00 U Hyaline Cast (Auto) 10-30 /lpf (0-5) H 12/21/18 16:00 U Epithel Cells (Auto) 5-10 /lpf (0-5) H 12/21/18 16:00 Urine Bacteria (Auto) Negative (Negative) 12/21/18 16:00 Resident Activity Tracking Resident Involvement: Resident Care Provided Care Provided: Adult Hospital Medicine
[2018-12-23] MEDS: cefTRIAXone SODIUM 1,000 MG in DEXTROSE 5% 50 ML IV SCH (18:11)
[2018-12-23] MEDS: METHENAMINE HIPPURATE 1 GM TAB PO SCH (20:35)
[2018-12-24] MEDS: ENOXAPARIN INJ 40 MG/0.4 ML SYR SQ SCH (06:44)
[2018-12-24 07:00] LABS: Basophils # (auto) 0.03 K/uL (0-0.2); Basophils % (auto) 0.7 %; Eosinophils # (auto) 0.14 K/uL (0-0.5); Eosinophils % (auto) 3.3 %; Hematocrit (blood only) 32.2 % (42-52); Hemoglobin 10.9 g/dL (14.0-18.0); Immature Granulocytes # (auto) 0.01 K/uL (0.00-0.02); Immature Granulocytes % (auto) 0.2 %; Lymphocytes # (auto) 1.19 K/uL (1.2-3.4); Lymphocytes % (auto) 28.3 %; Mean Corpuscular Hgb Conc 33.9 g/dL (32-36); Mean Corpuscular Volume 94.4 fL (80-100); Mean Platelet Volume 10.3 fL (7.4-10.4); Monocytes # (auto) 0.42 K/uL (0.11-0.59); Neutrophils # (auto) 2.41 K/uL (1.4-6.5); Neutrophils % (auto) 57.5 %; Platelet Count 188 K/uL (130-400); RDW Coefficient of Variation 15.5 % (11.5-14.5); RDW Standard Deviation 53.4 fL (36.4-46.3); Red Blood Count 3.41 M/uL (4.7-6.1)
[2018-12-24 07:28] LABS: BUN Creatinine Ratio 20.2 (10-20); Calcium 8.5 mg/dl (8.5-10.1); Creatinine Clr Calc Pharmacy 53.5 ml/min; Est GFR (African American) 88.3; Est GFR (Non-African American) 76.2; Potassium 4.1 mmol/L (3.5-5.1)
[2018-12-24] MEDS: INSULIN ASPART 100 UNITS/ML 3 ML PEN SQ SCH ×2 (08:55→12:50)
[2018-12-24] MEDS: ACETAMINOPHEN 500 MG TAB PO PRN (09:00)
[2018-12-24] MEDS: METHENAMINE HIPPURATE 1 GM TAB PO SCH (09:01)
[2018-12-24] MEDS: SERTRALINE HCL 50 MG TABLET PO SCH (09:01)
[2018-12-24] MEDS: PRAVASTATIN SOD 20 MG TAB PO SCH (09:02)
[2018-12-24] MEDS: CHOLECALCIFEROL 1,000 UNITS TAB PO SCH (09:02)
[2018-12-24] MEDS: POTASSIUM CHLORIDE 10 MEQ TABCR PO SCH (09:03)
[2018-12-24] MEDS: POLYETHYLENE (MIRALAX) 17 GM PACK PO SCH (09:03)
[2018-12-24] MEDS: ASPIRIN 81 MG ECTAB PO SCH (09:04)
[2018-12-24] MEDS: DOCUSATE SODIUM/SENNA 50/8.6MG TAB PO SCH (10:06)
[2018-12-24] MEDS: BISACODYL 5 MG TABEC PO SCH (10:06)
[2018-12-24] MEDS: INSULIN GLARGINE SOLOSTAR 100 UNITS/ML 3 ML PEN SQ SCH (10:06)
--- NOTE | 2018-12-24 11:32 | Discharge Summary ---
Date of Service December 24, 2018 Admission HPI Per Admitting Provider Chief Complaint: 83 y/o M Hx DM II, HLD, impaired gait, moderate dementia, anemia, chronic Heredia with recurrent UTIs and resultant weakness. 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 No fevers or rigors reported. The pt lives with his elderly who has difficulty caring for him when he becomes ill and cannot assist her. Last admitted 10/13/18 - 10/19/18 for similar complaints, then went to SNF for rehab, has been with home health since. Initial labs are notable for a + UA. PMH 1) Chronic Heredia, recurrent UTIs with encephalopathy 2) HLD 3) HTN - presently untreated 4) Moderate dementia 5) Impaired gait and frequent falls 6) Peripheral neuropathy 7) Dm II 8) Iron-deficient anemia - baseline Hb 10-12 9) T12 ompression fracture Surgical: Denies Social: No smoking or drinking history - cared for by his Family: Non contributory due to pt age Principal Diagnosis Metabolic Encephalopathy Discharge Exam Constitutional WD/WN, vitals as above Eyes PERRL, conjunctivae normal, anicteric sclerae ENMT external ear and nose normal, oropharynx normal Neck trachea midline, no thyromegaly Respiratory normal respiratory effort, lungs clear to auscultation Cardiovascular RRR, no murmur, no edema Gastrointestinal (Abdomen) normal bowel sounds, soft, nontender, no hepatosplenomegaly Musculoskeletal no cyanosis or clubbing, extremities motor strength 5/5 Skin no rashes, warm and dry Psychiatric Orientation: alert, oriented to person and oriented to place Lymphatic no cervical or axillary lymphadenopathy Discharge Data Allergies Allergy/AdvReac Type Severity Reaction Status Date / Time No Known Allergies Allergy NONE Verified 06/27/18 14:02 Consultations 12/21/18 18:43 ED Decision to Admit Stat 12/21/18 23:23 Consult Case Management - Discharge Planning Routine Ordered Studies 12/21/18 15:17 CT abd pelvis IV con only Stat 12/21/18 15:20 CT head/brain wo con Stat 12/22/18 07:00 US renal/blad retro comp Routine Hospital Course (1) Chronic indwelling Heredia catheter: 83M with history of dementia, type 2 diabetes, hyperlipidemia BPH and chronic catheterization with recurrent UTI presents with weakness and falls. He was admitted and treated for metabolic encephalopathy in the setting of recurrent UTI. {} Metabolic encephalopathy secondary to ? UTI/constipation Patient has baseline dementia, unclear if encephalopathy is from infection or from worsening dementia, likely the latter. Pt received rocephin. Urine culture with greater than 3 organisms - Urology recommends that the patient be started on methenamine, 1 g twice daily for UTI prevention, pt may need permanent catheterization for persistent urinary retention. {} Acute on chronic constipation Stool ball shown to have mass-effect on bladder -Received aggressive bowel regimen while inpatient and had good bowel movement. Continue bowel regimen, MiraLAX, Dulcolax and suppository {} DM2 Continued insulin, statin, aspirin {} Depression Continued Zoloft (2) Chronic constipation: (3) Fecal impaction in rectum: Total Time Total Time Spent Total Time Spent (In Minutes): 31 Discharge Plan Discharge Items Patient Disposition: Transfer Correction Fac Reason For Visit: AMBULATION DIFFICULTIES,COMPICATED UTI Discharge Diagnosis: Metabolic Encephalopathy, UTI Discharge Goals: Improve disease control Activity: As commented below Activity Comment: PT/OT at SNF Non-emergency contact: Primary Care Provider Call non-emergency contact if: your symptoms worsen Follow-up/Referrals: Suad Vasquez MD [Primary Care Provider] - Diet: Carb Consistent or DM2 and Heart Healthy Addtl Provider Instructions: Moy was admitted to the hospital for generalized weakness and fall. You were noted to be constipated and having urinary tract infection. You received IV fluids, aggressive bowel regimen to help with constipation and antibiotics for UTI. As per your urologist recommendation made at the office visit - you have also been started medicine to prevent UTI - methanamine. You were also discharged with a heredia catheter, per our notes this is a chronic heredia catheter. On discharge you will continue more aggressive bowel regimen with addition of miralax to help prevent constipation. You are being discharged to a [facility] nursing facility to help with strengthening and eventually return home. Prescriptions: New polyethylene glycol 3350 [Miralax] 17 gram Powder In Packet 17 g PO BID Qty: 1 RF: 0 methenamine hippurate 1 gram Tablet 1 g PO BID Qty: 1 RF: 0 Continued acetaminophen [Tylenol Extra Strength] 500 mg Tablet 1,000 mg PO BID PRN (Reason: Pain) RF: 0 sennosides-docusate sodium [Senna with Docusate Sodium] 8.6-50 mg tablet 1 tab PO QAM PRN (Reason: Constipation) RF: 0 insulin glargine 100 unit/mL (3 mL) insulin pen 20 unit subcut QAM RF: 0 aspirin 81 mg Tablet,Delayed Release (Dr/Ec) 81 mg PO DAILY RF: 0 calcium carbonate [Tums] 200 mg calcium (500 mg) Tablet,Chewable 200 mg PO UD PRN (Reason: Indigestion) RF: 0 sertraline 25 mg tablet 25 mg PO DAILY RF: 0 pravastatin 20 mg tablet 20 mg PO DAILY RF: 0 cholecalciferol (vitamin D3) [Vitamin D3] 1,000 unit Capsule 1,000 unit PO DAILY RF: 0 insulin aspart U-100 100 unit/mL insulin pen subcut TIDM RF: 0 Stand-Alone Forms: [facility] Discharge Orders: Discharge Order (Routine); Ordered 12/24/18 Ordered By: Florentino Rush Skilled Items Patient informed of condition?: Yes DNR: Yes Discharge Level of Care: Skilled Communicable Disease: No Discharge Prognosis: Stable Admission Data Admit Date/Time: 12/23/18 15:22 Attending Provider: Donna Pratt Admit Provider: Josefa Whipple Primary Care Provider: Suad Vasquez Other Providers: Avani Smith ; Home,Nursing Agency Service: Medical Other Interventions: Discharge Summary Assessment (RN) Last Done: 12/24/18 11:29 DC Date/Time DO NOT enter until pt leaves facility: 12/24/18 13:00 Supervising Physician Co-Signing Physician Notes Resident Physician Supervision Note: I independently interviewed and examined the patient and verified the barakat history and physical, reviewed labs and image studies, discussed the case with the resident Dr. Rush and agree with the findings and care plan. Time spent in discharge 35 min Resident Activity Tracking Resident Involvement: Resident Care Provided Care Provided: Adult Hospital Medicine
[2018-12-24] MEDS ORDERED: cefTRIAXone SODIUM 1,000 MG in DEXTROSE 5% 50 ML IV SCH (18:00)
--- NOTE | 2018-12-27 08:30 | Coding Query ---
CODING QUERY To promote full compliance with coding requirements relating to patient care, provider participation is requested in all cases of design technician uncertainty. Please assist us with the question(s) below: Coding Question: "chronic Heredia with recurrent UTIs" was documented in the chart, please clarify below to the best of your knowledge. Thank you so much for your help! (x ) UTI, due to chronic heredia catheter ( ) UTI, not due to heredia ( ) Other, explain Thank you! Mary Mejia Principal Diagnosis: "that condition established after study, to be chiefly responsible for occasioning the admission of the patient to the hospital for care." Co-Existing Principal Diagnosis: "when two or more diagnoses equally meet the criteria for principal diagnosis as determined by the circumstances of admission, diagnostic work up, and/or therapy provided, and the Alphabetic Index, Tabular List, or another coding guideline does not provide sequencing direction, any one of the diagnoses may be sequenced first." "When the physician has documented what appears to be a current diagnosis in the body of the record, but has not included the diagnosis in the final diagnostic statement, the physician should be asked whether the diagnosis should be added." (Source Coding [facility] 2 QTR90. p3-4) NIEVES
== END 2018-12-24 13:00 | DRG 698 ==
LOC: ED 14:11 → 2N 14:11 → SUATTDRO 21:58 → 2N 22:53 → 4E 12-22 17:01